=== PATIENT | female | born 1960 | race Caucasian/White ===

== ENCOUNTER 2020-09-17 10:39 | Outpatient (REF) | payer OTHER, SELFPAY ==
--- NOTE | ~2020-09-17 | MM_ITS ---
EXAMINATION: MM SCREENING DIGITAL BREAST TOMOSYNTHESIS, BILATERAL CLINICAL INFORMATION: Screening. Asymptomatic. The lifetime risk of breast cancer based on the Tyrer-Cuzick Model is 4.5%. COMPARISON: Mammography: July 06, 2018 and studies dating back to June 18, 2012 TECHNIQUE: Digital breast tomosynthesis is performed in both the craniocaudal and mediolateral oblique views along with computer-aided detection (CAD). Synthesized 2D images are generated from the tomosynthesis. FINDINGS: There are scattered areas of fibroglandular density (ACR BI-RADS breast composition Category b). There are no significant masses, abnormal calcifications, or other abnormalities. Intramammary lymph node seen left breast laterally. MM/MM tomosynthesis screening BI IMPRESSION: There are no significant changes from prior study. ASSESSMENT: BI-RADS 1: Negative RECOMMENDATION: Routine annual mammography screening. This patient's information was entered into a reminder system with a target due date for their next mammogram.
== END 2020-09-17 10:40 | disposition home or self-care (01) ==
LOC: HO.MAMMO 10:39
PROVIDERS: Visit Provider General Practice
DX: Z12.31 Encounter for screening mammogram for malignant neoplasm of breast (principal)
CPT/HCPCS: 77063; 77067

== ENCOUNTER 2021-10-11 12:20 | Outpatient (REF) | payer OTHER, SELFPAY ==
--- NOTE | ~2021-10-11 | MM_ITS ---
EXAMINATION: BONE DENSITOMETRY CLINICAL INDICATION: Menopause. COMPARISON: This is the patient's baseline examination. TECHNIQUE: Using a [employer] DXA System (software version: 13.1) manufactured by [employer] dual-energy x-ray absorptiometry was performed of the lumbar spine and right hip. The images are of good technical quality. Summary results are attached. FINDINGS: AP SPINE L1-L4: BMD 0.714 g/cm2, Z-score -2.4, T-score -3.9, osteoporosis. RIGHT FEMUR, NECK: BMD 0.615 g/cm2, Z-score -1.6, T-score -3.0, osteoporosis. RIGHT FEMUR, TOTAL: BMD 0.593 g/cm2, Z-score -2.2, T-score -3.3, osteoporosis. IDENTIFIED RISK FACTORS: Menopause, tobacco use (current smoker), history of fracture (adult). HISTORY OF FRACTURE: Hip. MEDICATIONS: Calcium, vitamin D. MM/XR DEXA axial skeleton IMPRESSION: 1. DIAGNOSIS: Severe osteoporosis based on the lowest T-score value of -3.9 in the lumbar spine and history of fracture of hip applying World Health Organization criteria. 2. 10-YEAR FRACTURE RISK PREDICTION, FRAX: Major osteoporotic fracture (clinical spine, forearm, hip or shoulder) 15.8%. Hip fracture 7.0%. 3. Treatment Recommendations: NOF guidelines recommend consideration for treatment in postmenopausal women and men age 50 and older presenting with the following: -A hip or vertebral (clinical or morphometric) fracture. -T-score less than or equal to -2.5 at the femoral neck or spine after appropriate evaluation to exclude secondary causes. -Low bone mass at the hip or spine and a 10-year fracture probability by FRAX of greater than or equal to 3% for hip fracture or greater than or equal to 20% for major osteoporotic fracture based on the [place] adapted WHO algorithm. 4. Other Recommendations: All treatment decisions require clinical judgment and consideration of individual patient factors, including patient preferences, comorbidities, previous drug use, risk factors not captured in the FRAX model (e.g. frailty, falls, vitamin D deficiency, increased bone turnover, interval significant decline in bone density) and possible under or overestimation of fracture risk by FRAX. Additional medical evaluation for secondary cause of low bone mineral density may be appropriate. FUTURE SCAN RECOMMENDATION: People with diagnosed cases of osteoporosis or at high risk for fracture should have regular bone mineral density tests. For patients eligible for Medicare, routine testing is allowed once every 2 years. The testing frequency can be increased to one year for patients who have rapidly progressing disease, those who are receiving or discontinuing medical therapy to restore bone mass, or have additional risk factors.
--- NOTE | ~2021-10-11 | MM_ITS ---
EXAMINATION: MM SCREENING DIGITAL BREAST TOMOSYNTHESIS, BILATERAL CLINICAL INFORMATION: Screening. Asymptomatic. The lifetime risk of breast cancer based on the Tyrer-Cuzick Model is 10%. COMPARISON: Mammography: 09/17/2020, 07/06/2018, 06/20/2017 TECHNIQUE: Digital breast tomosynthesis is performed in both the craniocaudal and mediolateral oblique views along with computer-aided detection (CAD). Synthesized 2D images are generated from the tomosynthesis. FINDINGS: There are scattered areas of fibroglandular density (ACR BI-RADS breast composition Category b). There are no significant masses, abnormal calcifications, or other abnormalities. Parenchymal pattern is similar to prior studies. There is no developing density or architectural abnormality. The axilla and skin contours are unremarkable. No significant changes. MM/MM tomosynthesis screening BI IMPRESSION: No mammographic evidence of malignancy. ASSESSMENT: BI-RADS 1: Negative RECOMMENDATION: Routine annual mammography screening. This patient's information was entered into a reminder system with a target due date for their next mammogram.
== END 2021-10-11 12:21 | disposition home or self-care (01) ==
LOC: HO.MAMMO 12:20
PROVIDERS: PCP Pediatrics; Visit Provider Pediatrics
DX: Z12.31 Encounter for screening mammogram for malignant neoplasm of breast (principal); Z13.820 Encounter for screening for osteoporosis; Z78.0 Asymptomatic menopausal state; F17.210 Nicotine dependence, cigarettes, uncomplicated; Z87.81 Personal history of (healed) traumatic fracture
CPT/HCPCS: 77063; 77067; 77080

== ENCOUNTER 2022-08-29 12:04 | Outpatient (REF) | payer OTHER, SELFPAY ==
--- NOTE | ~2022-08-29 | XR_ITS ---
EXAMINATION: XR ANKLE, RIGHT CLINICAL INFORMATION: Injury COMPARISON: None available. TECHNIQUE: AP, lateral, and mortise views of the right ankle. FINDINGS: Bone alignment is normal. No fracture or dislocation. The ankle mortise is normal. There are small calcaneal spurs. Soft tissues are normal. XR/XR ankle RT min 3V IMPRESSION: Small calcaneal spurs
== END 2022-08-29 12:05 | disposition home or self-care (01) ==
LOC: HO.HHCX 12:04
PROVIDERS: Visit Provider Family Medicine
DX: M25.571 Pain in right ankle and joints of right foot (principal)
CPT/HCPCS: 73610

== ENCOUNTER 2022-09-08 13:09 | Outpatient (REF) | payer OTHER, SELFPAY | END 2022-09-08 13:10 | disposition home or self-care (01) | LOC: HO.US 13:09 | PROVIDERS: Visit Provider Pediatrics | DX: Z13.89 Encounter for screening for other disorder (principal) ==

== ENCOUNTER 2022-09-19 10:57 | Outpatient (REF) | payer OTHER, SELFPAY ==
--- NOTE | ~2022-09-19 | US_ITS ---
EXAMINATION: US PELVIS CLINICAL INFORMATION: Pain pelvis, postmenopausal. COMPARISON: None available. TECHNIQUE: Ultrasound of the pelvis is performed using both transabdominal and transvaginal transducers along with Doppler. Transvaginal imaging is performed due to inadequate visualization transabdominally. FINDINGS: The uterus is anteverted, heterogeneous and measures 7.1 x 3.1 x 4.4 cm. 2.4 x 0.8 x 2.0 cm solid, hypoechoic mass without demonstrable vascularity within the endometrium possibly represents polyp versus clot. Fluid within the endometrial cavity. Endometrial thickness is 0.13 cm. No significant free fluid in the pelvis. Bilateral ovaries were not visualized. Visualization limited due to bowel gas. US/US pelvic and transvaginal IMPRESSION: 2.4 cm solid mass within the endometrium surrounded by small amount of fluid, possibly representing polyp versus clot etiology. Recommend gynecologic consultation and possible biopsy. Follow up ultrasound could be considered in 4-6 weeks. This study was presented today 09/30/2022 at 8:00 AM for interpretation. PSA staff will provide results to referring provider at this time.
== END 2022-09-19 10:58 | disposition home or self-care (01) ==
LOC: HO.US 10:57
PROVIDERS: PCP Pediatrics; Visit Provider Pediatrics
DX: N94.10 Unspecified dyspareunia (principal); N93.8 Other specified abnormal uterine and vaginal bleeding
CPT/HCPCS: 76830; 76856

== ENCOUNTER 2023-03-20 14:22 | Outpatient (REF) | payer OTHER, SELFPAY ==
[2023-03-24 12:27] LABS: Fentanyl, Ur NEGATIVE; Norfentanyl, Ur NEGATIVE
== END 2023-03-20 14:23 | disposition home or self-care (01) ==
LOC: HO.HHCLNP 14:22
PROVIDERS: Visit Provider Pediatrics
DX: M54.9 Dorsalgia, unspecified (principal); G89.29 Other chronic pain
CPT/HCPCS: 80354

== ENCOUNTER 2023-07-14 13:23 | Outpatient (REF) | payer OTHER, SELFPAY ==
--- NOTE | ~2023-07-14 | XR_ITS ---
EXAMINATION: XR FOOT, RIGHT CLINICAL INFORMATION: Chronic plantar right foot pain, patient states pain, no trauma. COMPARISON: Right ankle August 29, 2022. TECHNIQUE: AP, lateral, and oblique views of the right foot. FINDINGS: The bones are diffusely demineralized. Radiopaque marker placed by the technologist to indicate the area of concern indicated by the patient lateral to the base of the fifth metatarsal. Mild degenerative changes in the first metatarsophalangeal joint and in the IP joint of the great toe. No displaced fracture appreciated. Small plantar calcaneal spur. XR/XR foot RT min 3V IMPRESSION: 1. Mild degenerative changes in the first metatarsophalangeal joint and in the IP joint of the great toe. 2. Bones are diffusely demineralized. No displaced fracture appreciated. Recommend follow up imaging in 10-14 days if fracture is suspected.
== END 2023-07-14 13:24 | disposition home or self-care (01) ==
LOC: HO.XRAY 13:23
PROVIDERS: PCP Pediatrics; Visit Provider Pediatrics
DX: M79.671 Pain in right foot (principal); G89.29 Other chronic pain
CPT/HCPCS: 73630

== ENCOUNTER 2023-10-02 11:23 | Outpatient (REF) | payer OTHER, SELFPAY ==
--- NOTE | ~2023-10-02 | XR_ITS ---
EXAMINATION: XR FOOT, RIGHT CLINICAL INFORMATION: DJD foot and pain, needs repeat x-ray to rule out fracture, patient states pain on lateral aspect of foot. COMPARISON: 07/14/2023. TECHNIQUE: AP, lateral, and oblique views of the right foot. FINDINGS: Diffuse demineralization. Mild degenerative changes in the first metatarsophalangeal joint and in the IP joint of the great toe. Small plantar calcaneal spur. No displaced fracture identified in the previously indicated area of concern along the base of the fifth metatarsal. XR/XR foot RT min 3V IMPRESSION: 1. No displaced fracture identified in the previously indicated area of concern along the base of the fifth metatarsal. 2. Recommend follow up imaging in 10-14 days if fracture is suspected.
== END 2023-10-02 11:24 | disposition home or self-care (01) ==
LOC: HO.XRAY 11:23
PROVIDERS: PCP Pediatrics; Visit Provider Pediatrics
DX: M79.671 Pain in right foot (principal); G89.29 Other chronic pain
CPT/HCPCS: 73630

== ENCOUNTER 2023-10-14 09:23 | Outpatient (REF) | payer OTHER, SELFPAY ==
--- NOTE | ~2023-10-14 | MM_ITS ---
EXAMINATION: BONE DENSITOMETRY CLINICAL INDICATION: Age-related osteoporosis without current pathological fracture. COMPARISON: Baseline BD dated 10/11/2021. TECHNIQUE: Using a [employer] DXA System (software version: 13.1) manufactured by [employer] dual-energy x-ray absorptiometry was performed of the lumbar spine and right hip. The images are of good technical quality. Summary results are attached. FINDINGS: RIGHT FEMUR, NECK: Current: BMD 0.611 g/cm2, Z-score -1.6, T-score -3.1, osteoporosis. Baseline: BMD 0.615 g/cm2. RIGHT FEMUR, TOTAL: Current: BMD 0.593 g/cm2, Z-score -2.1, T-score -3.3, osteoporosis, 0.0% change from baseline (<5% change is not significant). Baseline: BMD 0.593 g/cm2. AP SPINE L1-L4: Current: BMD 0.731 g/cm2, Z-score -2.2, T-score -3.7, osteoporosis, 2.4% increase from baseline (<5% change is not significant). Baseline: BMD 0.714 g/cm2. IDENTIFIED RISK FACTORS: Menopause, hysterectomy, history of fracture (adult), anticonvulsant, bilateral oophorectomy, osteoporosis, recurrent falls, tobacco use (current smoker). HISTORY OF FRACTURE: Hip. MEDICATIONS: Vitamin D. MM/XR DEXA axial skeleton IMPRESSION: 1. DIAGNOSIS: Severe osteoporosis based on the lowest T-score value of -3.7 in the lumbar spine and history of fracture of hip applying World Health Organization criteria. 2. 10-YEAR FRACTURE RISK PREDICTION, FRAX: According to the guidelines, FRAX calculation should only be performed on patients in the osteopenia bone density category. Therefore, FRAX was not performed on this patient. 3. Treatment Recommendations: NOF guidelines recommend consideration for treatment in postmenopausal women and men age 50 and older presenting with the following: -A hip or vertebral (clinical or morphometric) fracture. -T-score less than or equal to -2.5 at the femoral neck or spine after appropriate evaluation to exclude secondary causes. -Low bone mass at the hip or spine and a 10-year fracture probability by FRAX of greater than or equal to 3% for hip fracture or greater than or equal to 20% for major osteoporotic fracture based on the [place] adapted WHO algorithm. 4. Other Recommendations: All treatment decisions require clinical judgment and consideration of individual patient factors, including patient preferences, comorbidities, previous drug use, risk factors not captured in the FRAX model (e.g. frailty, falls, vitamin D deficiency, increased bone turnover, interval significant decline in bone density) and possible under or overestimation of fracture risk by FRAX. Additional medical evaluation for secondary cause of low bone mineral density may be appropriate. FUTURE SCAN RECOMMENDATION: People with diagnosed cases of osteoporosis or at high risk for fracture should have regular bone mineral density tests. For patients eligible for Medicare, routine testing is allowed once every 2 years. The testing frequency can be increased to one year for patients who have rapidly progressing disease, those who are receiving or discontinuing medical therapy to restore bone mass, or have additional risk factors.
== END 2023-10-14 09:24 | disposition home or self-care (01) ==
LOC: HO.MAMMO 09:23
PROVIDERS: PCP Pediatrics; Visit Provider Pediatrics
DX: M81.0 Age-related osteoporosis without current pathological fracture (principal); Z78.0 Asymptomatic menopausal state
CPT/HCPCS: 77080

== ENCOUNTER 2023-12-18 11:51 | Outpatient (REF) | payer OTHER, SELFPAY ==
[2023-12-18 14:13] LABS: MANUAL DIFF FLAG NO
[2023-12-18 14:18] LABS: Basophils Percent Auto 0.7 % (0-2); Eosinophils Absolute Auto 0.1 X10*3/uL (0.0-0.4); Eosinophils Percent Auto 1.4 % (0-4); Hematocrit 35.3 % (37.0-47.0); Hemoglobin 11.3 g/dl (12.0-16.0); Imm Gran Abs Auto 0.01 X10*3/uL (0.00-0.03); Imm Gran Pct Auto 0.2 % (0.0-0.4); Lymphocytes Absolute Auto 1.5 X10*3/uL (1.2-4.9); Lymphocytes Percent Auto 36.7 % (20-40); Mean Corpuscular Hemoglobin 27.2 pg (27.0-33.0); Mean Corpuscular Volume 84.9 fL (80.0-98.0); Mean Platelet Volume 9.7 fL (9.4-12.3); Monocytes Absolute Auto 0.3 X10*3/uL (0.1-1.2); Monocytes Percent Auto 7.6 % (2-11); Neutrophils Absolute Auto 2.2 x10*3/uL (2.0-8.3); Neutrophils Percent Auto 53.4 % (45-73); Platelet Count 300 X10*3/uL (160-400); Red Blood Count 4.16 X10*6/uL (4.20-5.50); Red Cell Distribution Width 13.4 % (11.0-16.0); White Blood Count 4.2 X10*3/uL (4.8-10.8)
[2023-12-18 14:48] LABS: Alanine Aminotransferase 13 U/L (0-31); Albumin Level 3.8 g/dL (3.5-5.0); Alkaline Phosphatase 64 U/L (39-117); Anion Gap 10 (12-20); Aspartate Amino Transferase 16 U/L (5-31); Bilirubin Total 0.6 mg/dL (0.0-1.0); Blood Urea Nitrogen 19 mg/dL (9-16); Calcium 9.2 mg/dL (8.4-10.2); Carbon Dioxide 29 mmol/L (22-29); Chloride 108 mmol/L (96-108); Estimated Glomerular Filt Rate > 60; Glucose Random 86 mg/dL (60-115); Potassium 3.6 mmol/L (3.3-5.1); Sodium 143 mmol/L (135-145); Total Protein 6.5 g/dL (6.5-8.0)
== END 2023-12-18 11:52 | disposition home or self-care (01) ==
LOC: HO.CHCLDS 11:51
PROVIDERS: Visit Provider Internal Medicine
DX: Z01.818 Encounter for other preprocedural examination (principal)
CPT/HCPCS: 36415; 80053; 85025

== ENCOUNTER 2024-03-02 10:36 | Outpatient (REF) | payer OTHER, SELFPAY ==
[2024-03-02 14:11] LABS: MANUAL DIFF FLAG NO
[2024-03-02 14:16] LABS: Basophils Percent Auto 0.6 % (0-2); Eosinophils Absolute Auto 0.1 X10*3/uL (0.0-0.4); Eosinophils Percent Auto 1.9 % (0-4); Hematocrit 36.4 % (37.0-47.0); Hemoglobin 11.6 g/dl (12.0-16.0); Imm Gran Abs Auto 0.01 X10*3/uL (0.00-0.03); Imm Gran Pct Auto 0.2 % (0.0-0.4); Lymphocytes Absolute Auto 1.3 X10*3/uL (1.2-4.9); Mean Corpuscular HGB Conc 31.9 g/dl (31.0-35.0); Mean Corpuscular Hemoglobin 26.7 pg (27.0-33.0); Mean Corpuscular Volume 83.7 fL (80.0-98.0); Mean Platelet Volume 9.7 fL (9.4-12.3); Monocytes Absolute Auto 0.3 X10*3/uL (0.1-1.2); Monocytes Percent Auto 5.8 % (2-11); Neutrophils Absolute Auto 2.9 x10*3/uL (2.0-8.3); Neutrophils Percent Auto 62.5 % (45-73); Platelet Count 327 X10*3/uL (160-400); Red Blood Count 4.35 X10*6/uL (4.20-5.50); Red Cell Distribution Width 12.9 % (11.0-16.0); White Blood Count 4.6 X10*3/uL (4.8-10.8)
[2024-03-02 14:32] LABS: Iron 113 mcg/dL (30-160); Percent Iron Saturation 45 % (15-50); Total Iron Binding Capacity 251 mcg/dL (228-428); Unsaturated Iron Binding 138 ug/dL
[2024-03-02 14:47] LABS: Vitamin D 25-OH Total 39.1 ng/mL (>30)
[2024-03-02 15:00] LABS: Folate 10.4 ng/mL (> or = 4.0); Vitamin B12 1297 pg/mL (200-900)
== END 2024-03-02 10:37 | disposition home or self-care (01) ==
LOC: HO.CHCLDS 10:36
PROVIDERS: Visit Provider Pediatrics
DX: M81.0 Age-related osteoporosis without current pathological fracture (principal); D50.8 Other iron deficiency anemias
CPT/HCPCS: 36415; 82306; 82607; 82746; 83540; 85025

== ENCOUNTER 2024-03-09 17:40 | Outpatient (REF) | payer OTHER, SELFPAY ==
[2024-03-14 11:49] LABS: Fentanyl, Ur NEGATIVE; Norfentanyl, Ur NEGATIVE
== END 2024-03-09 17:41 | disposition home or self-care (01) ==
LOC: HO.CHCLNP 17:40
PROVIDERS: Visit Provider Pediatrics
DX: M54.9 Dorsalgia, unspecified (principal); G89.29 Other chronic pain
CPT/HCPCS: 80354

== ENCOUNTER 2024-06-21 10:40 | Outpatient (REF) | payer OTHER, SELFPAY ==
--- OUTSIDE RECORDS SUMMARY | 2024-06-21 12:44 | XMS_ITS | Encounter Summary ---
Author Organization [employer] Address [address] [facility] [address] [place] [address] Care Team Providers Care Measuring Machine Tender Name Role Phone Tran Rogers MD Primary Care Provider [phone] Encounter Details Date Type Department Care Team (Late Contact Info) Description 06/17/2024 Orders Only [facility] [address] [place], [place] [id number] Provider, MD Sebastian Social History Tobacco Use Types Packs/Day Years Used Date Smoking Tobacco: Some Days Cigarettes Passive Smoke Exposure: Current Smokeless Tobacco: Never Alcohol Use Standard Drinks/Week Comments Not Currently 0 (1 standard drink = 0.6 oz pur e alcohol) Alcohol Answer Date Recorded Q1: How often do you have a drink containing alc ohol? 3 04/11/2022 Average Number of Drinks Not on file 023 Frequency of Binge Drinking Not on file 03/24 Depression Answer Date Recorded Patient Health Questionnaire-9 Score 11 07/14/2023 Patient Health Questionnaire-9 Score 11 07/14/2023 Last PHQ-9: Questionnaire Data Not on file 0 07/14/2023 Depression Answer Date Recorded Patient Health Questionnaire-2 Score 2 07/14/2023 Comments Unknown Sex and Gender Information Value Date Recorded Sex Assigned at Female 01/20/2022 10:30 AM EDT Legal Sex Female 10:30 AM EDT Gender Identity Female 01/20/2022 10:30 AM EDT Sexual Orientation Straight 01/20/2022 10 :30 AM EDT documented as of this encounter Plan of Treatment Upcoming Encounters Date Type Department Care Team (Late Contact Info) Description 08/10/2024 11:00 AM EDT Clinical Support [facility] [address] [place] [address] Vesta Marcial, RN [address] [place] [address] 08/23/2024 11:30 AM EDT Office Visit [facility] [address] [place] [address] Tran Rogers MD [address] [place] [address] documented as of this encounter Procedures Procedure Name Priority Date/Time Associated Diagnosis Comments ECG 12-LEAD Routine 06/16/2024 8:57 AM EDT documented in this encounter Results * ECG 12 lead (06/16/2024 8:57 AM EDT) us Historical Provider ECG ORDERABLES Final Res ult documented in this encounter Visit Diagnoses Not on filedocumented in this encounter Additional Health Concerns Assessment Noted Time PHQ-9 Depression Total Score: 11 024 10:16 AM EDT documented as of this encounter Care Teams Measuring Machine Tender Relationship Specialty Start Date End Date Tran Rogers MD [address] [place] [address] PCP - General Family Medicine 11/10/17 documented as of this encounter
--- OUTSIDE RECORDS SUMMARY | 2024-06-21 12:44 | XMS_ITS | Encounter Summary ---
Author Organization [employer] Address [address] [place] [address] [address] [place] [address] Care Team Providers Care Rubber Trimmer Name Role Phone Tran Rogers MD Primary Care Provider [phone] Encounter Details Date Type Department Care Team (Late Contact Info) Description 03/20/2023 Orders Only [facility] [address] [place] [address] Ozzy Foster MD [address] [place] [address] Social History Tobacco Use Types Packs/Day Years Used Date Smoking Tobacco: Former Cigarettes Passive Smoke Exposure: Current Smokeless Tobacco: Never Alcohol Use Standard Drinks/Week Comments Not Currently 0 (1 standard drink = 0.6 oz pur e alcohol) Alcohol Answer Date Recorded Q1: How often do you have a drink containing alc ohol? 3 04/11/2022 Average Number of Drinks Not on file 023 Frequency of Binge Drinking Not on file 03/24 Comments Unknown Sex and Gender Information Value Date Recorded Sex Assigned at Female 01/20/2022 10:30 AM EDT Legal Sex Female 10:30 AM EDT Gender Identity Female 01/20/2022 10:30 AM EDT Sexual Orientation Straight 01/20/2022 10 :30 AM EDT documented as of this encounter Plan of Treatment Upcoming Encounters Date Type Department Care Team ([facility] Contact Info) Description 08/10/2024 11:00 AM EDT Clinical Support [facility] [address] [place] [address] Vesta Marcial RN [address] [place] [address] 08/23/2024 11:30 AM EDT Office Visit [facility] [address] [place], [place] [phone] Tran Rogers MD [address] [place] [address] documented as of this encounter Procedures Procedure Name Priority Date/Time Associated Diagnosis Comments DRUG MONITOR, FENTANYL, W/CONF, URINE Routine 03/20/2023 2:22 PM EST documented in this encounter Results * Drug Monitoring, Fentanyl, with Confirmation, Urine (03/20/2023 2:22 PM EST) Fentanyl, Ur NEGATIVE [facility] Comment:REFERENCE RANGE: <0. 5 ng/mL Norfentanyl, Ur NEGATIVE [facility] Comment:REFERENCE RANGE: <0. 5 ng/mL Fentanyl Note SEE NOTE [facility] Comment:This drug testing is for medical treatment only.Analysis was performed as non-forensic testing andthese results should be used only by healthcareproviders to render diagnosis or treatment, or tomonitor progress of medical conditions.LDT Notes:Confirmation tests were developed and their analyticalperformance characteristics have been determined by[facility]. It has not been cleared or approvedby the FDA. This assay has been validated pursuant tothe CLIA regulations and is used for clinical purposes.Healthcare Providers needing Interpretation assistance,please contact us at [phone] ( )M-F, 8am to 10pm ESTTHIS TEST PERFORMED AT:[facility] [address] [phone] DIRECTOR: CLARE BILLY MD 03/20/2023 2:22 PM EST 03/20/2023 2:37 PM EST us Tran Rogers MD LAB URINE ORDERABLES Final Re sult [facility] [address] [place] [phone] documented in this encounter Visit Diagnoses Not on filedocumented in this encounter Care Teams Rubber Trimmer Relationship Specialty Start Date End Date Tran Rogers MD [address] [place] [id number] PCP - General Family Medicine 11/10/17 documented as of this encounter
--- OUTSIDE RECORDS SUMMARY | 2024-06-21 12:44 | XMS_ITS | Encounter Summary ---
Author Organization [employer] Address [address] [place] [address] 7 [place] [address] Care Team Providers Care Utilities Estimator And Drafter Name Role Phone Tran Rogers MD Primary Care Provider [phone] Reason for Visit * Reason Onset Date Comments Nurse Triage 06/17/2024 Encounter Details Date Type Department Care Team (Late st Contact Info) Description 06/17/2024 Telephone [facility] MEDICINE [address] [place] [address] Tran Rogers MD [address] [place] [address] Nurse Triage Social History Tobacco Use Types Packs/Day Years [...] AM EDT documented as of this encounter Miscellaneous Notes * Telephone Encounter - Luba Chakraborty LPN - 06/17/2024 2:51 PM EDT Triage call returned with BLS # [id number] Fidel. Patient answers phone readily speech is clear and content appropriate. Patient confirms [facility] ED visit yesterday with confusion weakness and anxiety as related to forgetfulness. Patient denies SI/HI at time of call. Reports that this morning after bathing she left water running and was notified by neighbor. Patient has been having issues in apt. She live in but has been approved for alternate housing. No other identified stressors at time of call Patient reports she does not eat well as she is never really hungry. Also is takes Doxepin for sleep as she does not sleep well. Med ordered as 75mgdaily but patient was told by Psych she could take 2 as needled and sometimes takes three per report. Patient is followed by Psych Provider and does not have an appt for some months. Patient has [employer] services that she feels are helpful to her and that spending time alone at home makes her feel worse. Patient was able to get outside today with a friend and states it really helped her. Patient Meds are not prepackaged and reports that they are in bottles and that she is able to maintain correct schedule. Disposition reviewed and appt for 06/21/24 10am 30 minute slot obtained with Armorer Technician [facility] approval. Patient will see PCP at that time Dr. Rogers. Patient reminded of [facility] asneeded and she verbalized understanding. Patient agreed to text message with Date and time of appt as a reminder for 06/21/24 Text sent at end of call. Protocol Used: Confusion - Delirium (Adult) Protocol-Based Disposition: See in Office or Video Visit Today or Tomorrow Positive Triage Question: * Longstanding confusion (e.g., dementia, stroke) and getting worse * All higher-acuity triage questions were negative * Telephone Encounter - Sarahirpimitivo Neely - 06/17/2024 1:41 PM EDT Tc from pt requesting a call in regards symptoms psychotic episodes Hallucinations Disorganized thinking and speech documented in this encounter Plan of Treatment Upcoming Encounters Date Type Department Care Team ([facility] st Contact Info) Description 08/10/2024 11:00 AM EDT Clinical Support [facility] MED & PEDS [address] [place] [address] Vesta Marcial, RN [address] [place] [address] 08/23/2024 11:30 AM EDT Office Visit [facility] MED & PEDS [address] [place] [address] Tran Rogers MD [address] [place] [address] documented as of this encounter Visit Diagnoses Not on filedocumented in this encounter Additional Health Concerns Assessment Noted Time PHQ-9 Depression Total Score: 11 024 10:16 AM EDT documented as of this encounter Care Teams Utilities Estimator And Drafter Relationship Specialty Start Date End Date Tran Rogers MD [address] [place] [address] PCP - General Family Medicine 11/10/17 documented as of this encounter
--- OUTSIDE RECORDS SUMMARY | 2024-06-21 12:44 | XMS_ITS | Encounter Summary ---
Author Organization [employer] Address [address] [place] [address] [address] [address] Care Team Providers Care Website Programmer Name Role Phone Tran Rogers MD Primary Care Provider [phone] Reason for Visit * Reason Onset Date Comments Appointment Request 01/13/2024 Encounter Details Date Type Department Care Team ([facility] st Contact Info) Description 01/13/2024 Telephone [facility] MEDICINE [address] [place] [address] Tran Rogers MD [address] [place] [address] Appointment Request Social History Tobacco Use Types Packs/Day Years [...] encounter Miscellaneous Notes * Telephone Encounter - Michael Weaver - 01/13/2024 9:55 AM EDT Tc from pt requesting call back to reschedule [employer] visit. Please contact pt at [phone]. (Russian Speaker) documented in this encounter Plan of Treatment Upcoming Encounters Date Type Department Care Team ([facility] st Contact Info) Description 08/10/2024 11:00 AM EDT Clinical Support [facility] MED & PEDS [address] [place] [address] Vesta Marcial RN [address] [place] [address] 08/23/2024 11:30 AM EDT Office Visit [facility] MED & PEDS [address] [place] [address] Tran Rogers MD [address] [place] [address] documented as of this encounter Visit Diagnoses Not on filedocumented in this encounter Additional Health Concerns Assessment Noted Time PHQ-9 Depression Total Score: 11 024 10:16 AM EDT documented as of this encounter Care Teams Website Programmer Relationship Specialty Start Date End Date Tran Rogers MD [address] [place] [address] PCP - General Family Medicine 11/10/17 documented as of this encounter
--- OUTSIDE RECORDS SUMMARY | 2024-06-21 12:44 | XMS_ITS | Clinical Summary ---
Author Organization [employer] Address [address] [facility] [address] [place] [address] Care Team Providers Care Learning Support Specialist Name Role Phone Tran Rogers MD Primary Care Provider Allergies Active Allergy Reactions Criticality Noted Date Comments Penicillin G Low 04/09/2016 Other reaction(s): Hives / Skin Rash Medications * This document contains information received from the source organization and may not represent a complete record from that organization. B Complex Vitamins (RA B-Complex with B-12) tablet Take 1 tablet by mouth in the morning. 022 Active clonazePAM (KlonoPIN) 0.5 MG tablet Take 1 tablet by mouth every 12 (twelve) hours. Active loratadine (Claritin) 10 MG tablet Take 1 tablet by mouth 1 (one) time each day. 021 Active methocarbamol (Robaxin) 750 MG tablet Take 1 tablet by mouth every 8 (eight) hours. 022 Active naloxone (Narcan) 4 mg/0.1 mL nasal spray Administer 0.1 mL into affected nostril(s). 020 Active Nutritional Supplements (Ensure High Protein) liquid drink 1 can orally 3 times a day 020 Active cholecalciferol (Vitamin D-3) 50 MCG (1999) tabletIndications :Primary osteoarthritis of knees, bilateral Take 1 tab po daily 90 tablet 3 023 Active pantoprazole (ProtoNix) 20 MG EC tablet TAKE 1 TABLET BY MOUTH TWICE DAILY 60 tablet 3 023 Active doxepin (SINEquan) 75 MG capsule Take 75 mg by mouth. 024 Active ARIPiprazole (Abilify) 20 MG tablet Take 20 mg by mouth in the morning. 024 Active tiZANidine (Zanaflex) 4 MG tablet TAKE 1 TABLET BY MOUTH EVERY NIGHT AT BEDTIME NEEDED 90 tablet 1 024 Active cyanocobalamin (Vitamin B-12) 1000 MCG tablet TAKE 1 TABLET BY MOUTH EVERY DAY 90 tablet 1 024 Active lidocaine (Lidoderm) 5 % patchIndications: Acute left-sided low back pain with left-sided sciatica Apply 1 patch topically Once per day. Remove & discard patch within 12 hours or as directed by MD. 30 patch Active ferrous sulfate 325 (65 Fe) MG EC tablet TAKE 1 TABLET BY MOUTH TWICE DAILY 60 tablet 3 024 Active alendronate (Fosamax) 70 MG tablet Take 1 tablet (70 mg) by mouth every 7 (seven) days. 12 tablet 2 024 Active pantoprazole (ProtoNix) 20 MG EC tablet TAKE 1 TABLET BY MOUTH TWICE DAILY 60 tablet 3 025 Active traMADol (Ultram) 50 MG tabletIndications :Chronic back pain, unspecified back location, unspecified back pain laterality Take 1 tablet (50 mg) by mouth every 8 (eight) hours if needed for severe pain. 84 tablet 025 Active Multiple Vitamin (Multivitamin) tablet TAKE 1 TABLET BY MOUTH EVERY MORNING 90 tablet 1 025 Active DayVigo 10 MG tablet Take 1 tablet by mouth at bedtime. 023 Active lithium 300 MG capsule TAKE ONE CAPSULE BY MOUTH EVERY MORNING AND 2 CAPSULES EVERY NIGHT AT BEDTIME Active LORazepam (Ativan) 0.5 MG tablet TAKE 1 TABLET AT BEDTIME AND 1 TABLET 1 HOUR PRIOR TO PROCEDURE 023 Active Multiple Vitamin (Multivitamin) tablet TAKE 1 TABLET BY MOUTH EVERY MORNING 90 tablet 1 024 2024 Discontinued(R annamarie (will not trigger notification to Pharmacy)) traMADol (Ultram) 50 MG tabletIndications :Chronic back pain, unspecified back location, unspecified back pain laterality TAKE 1 TABLET(50 MG) BY MOUTH EVERY 8 HOURS NEEDED FOR SEVERE PAIN 84 tablet 025 2024 Discontinued(R eorder (will not trigger notification to Pharmacy)) Active Problems Problem Noted Date Diagnosed Date Long-term current use of opiate analgesic 2024 Lesion of brain 06/09/2022 Overview (06/09/2022): MRI from : 1. Mild, nonspecific subcortical white matter abnormality without enhancement. These lesions could represent areas of ischemia, gliosis, demyelination or edema related to vasculitis, Lyme disease, sarcoidosis, migraine, multiple sclerosis and infectious and postinfectious encephalitis. . 2. Enhancing vessel anterior to the right cerebral peduncle and right upper zarina likely representing an apparent venous drainage pathway. Dementia, presenile 06/09/2022 Rib pain on left side 06/09/2022 Depression with anxiety 04/15/2022 Age-related osteoporosis wit hout current pathological fracture 04/15/2022 Lumbago with sciatica 09/30/2018 Gastroesophageal reflux disease without esophagi tis 02/19/2018 Benzodiazepine dependence, continuous 12/21/2017 Back pain, chronic 12/21/2017 Mood disorder 12/21/2017 Primary osteoarthritis of knees, bilateral 12/21 Seasonal allergies 12/21/2017 Tubular adenoma of colon 08/11/2013 Overview (04/15/2022): tubular adenoma of colonrepeat colonoscopy in 5 years Encounters Date Type Department Care Team Description 06/21/2024 10:00 AM EDT Office Visit [facility] MED & PEDS [address] [place] [address] Tran Rogers MD Confusion and disorientation (Primary Dx) 06/21/2024 Travel 06/20/2024 Telephone [facility] MED [facility] PEDS [address] [place] [address] Tran Rogers MD Chart Prep 06/17/2024 Telephone [facility] MEDICINE [address] [place] [address] Tran Rogers MD Nurse Triage 06/17/2024 Orders Only [facility] MED [facility] PEDS [address] [place] [address] ProviderSebastian MD 06/14/2024 Refill [facility] MED [facility] PEDS [address] [place] [address] Tran Rogers MD 06/02/2024 1:30 PM EDT Clinical Support [facility] MED & PEDS [address] [place] [address] Vesta Marcial RN Chronic back pain, unspecified back location, unspecified back pain laterality (Primary Dx); Long-term current use of opiate analgesic 06/02/2024 Refill [facility] MED & PEDS [address] [place] [address] Vesta Marcial RN Chronic back pain, unspecified back location, unspecified back pain laterality 06/02/2024 Telephone [facility] MED & PEDS [address] [place] [address] Tran Rogers MD traige 06/02/2024 Travel 05/17/2024 Refill [facility] MEDICINE [address] [place] [address] Tran Rogers MD 04/15/2024 Refill [facility] MED & PEDS [address] [place] [address] Tran Rogers MD Chronic back pain, unspecified back location, unspecified back pain laterality from Last 3 Months Immunizations Name Administration Dates Next Due Hep B, adult 11/25/2018,10/14/2018 Influenza Injectable Quadriv alant Preservative Free IIV4 MDCK 02/12/2022 Influenza injectable quadriv alent IIV4 with preservative 04/08/2019 Moderna Covid-19 Vaccine 12+ 05/03/2021,06/29/19 21 Tdap 12/21/2017,08/27/2012 Zoster, Recombinant 04/22/2022,02/12/2022 Social History Tobacco Use Types Packs/Day Years Used Date Smoking Tobacco: Some Days Cigarettes Passive Smoke Exposure: Current Smokeless Tobacco: Never Tobacco Cessation:Ready to Q uit: Not Asked; Counseling Given: Not Answered Alcohol Use Standard Drinks/Week Comments Not Currently [...] Orientation Straight 01/20/2022 10 :30 AM EDT Last Filed Vital Signs Vital Sign Reading Time Taken Comments Blood Pressure 147/85 06/21/2024 9:57 AM EDT Pulse 72 06/21/2024 9:57 AM EDT Temperature 36.2 ??C (97.2 ??F) 06/21/2024 9:57 AM ED T Respiratory Rate 16 06/21/2024 9:57 AM EDT Oxygen Saturation 98% 06/21/2024 9:57 AM EDT Inhaled Oxygen Concentration - - Weight 59.9 kg (132 lb) 06/21/2024 9:57 AM EDT Height 162.6 cm (5' 4 ) 06/21/2024 9:57 AM EDT Body Mass Index 22.66 06/21/2024 9:57 AM EDT Plan of Treatment Upcoming Encounters Date Type Department Care Team ([facility] st Contact Info) Description 08/10/2024 11:00 AM EDT Clinical Support [facility] MED & PEDS [address] [place] [address] Vesta Marcial, MANNIE [address] [place] [address] 08/23/2024 11:30 AM EDT Office Visit [facility] MED & PEDS [address] [place] [address] Tran Rogers MD [address] [place] [address] Health Maintenance Due Date Last Done Comments CT Colonography 1960 FIT DNA/Cologuard 1960 FIT 1960 FOBT 1960 SDOH Screening 1960 Sigmoidoscopy 1960 Alcohol/Substance Use Screening 1972 Pneumococcal Vaccine: 50+ Years (1 of 2 - PCV) 12/05/1979 Hepatitis B Vaccines (3 of 3 - 19+ 3-dose series) 04/16/2019 11/25/2018, 10/14/2018 COVID-19 Vaccine ( - season) 2023 05/03/2021, 06/28/2020, 06/01/2020 Influenza Vaccine (#1) 2023 02/12/2022, 2019 Depression Monitoring (PHQ-9) 01/13/2024 07/14/2023, 07/14/2023 Depression Screening 07/13/2024 07/14/2023, 07/14/19 24 Pap Smear 04/16/2025 04/16/2022 Tobacco Screening 06/21/2025 06/21/2024 Mammogram 07/12/2025 07/13/2023, 09/21, 10/11/2021, Additional history exists Lipid Panel 07/27/2025 07/27/2020 Cervical Cancer Screening 04/16/2027 HPV/Cotest 04/16/2027 04/16/2022, 03/24, 01/20/2017 DTaP/Tdap/Td Vaccines (3 - Td or Tdap) 12/22/2027 12/21/2017, 08/27/2012 Colonoscopy 12/13/2029 12/14/2019 Colorectal Cancer Screening 12/13/2029 RSV Patients and Patients Aged 60 years or older (1 - 1-dose 75+ series) 12/05/2035 HIV Screening Completed 07/27/2020 Hepatitis C Screening Completed 07/27/2020 Zoster Vaccines Completed 04/22/2022, 02/12/2022 HIB Vaccines Aged Out No longer eligi ble based on patient's age to complete this topic HPV Vaccines Aged Out No longer eligi ble based on patient's age to complete this topic Hepatitis A Vaccines Aged Out No long er eligible based on patient's age to complete this topic IPV Vaccines Aged Out No longer eligi ble based on patient's age to complete this topic Meningococcal Vaccine Aged Out No corinne nathanael eligible based on patient's age to complete this topic RSV under 20 months Aged Out No longe r eligible based on patient's age to complete this topic Rotavirus Vaccines Aged Out No longer eligible based on patient's age to complete this topic Procedures Procedure Name Priority Date/Time Associated Diagnosis Comments ECG 12-LEAD Routine 06/16/2024 8:57 AM EDT POCT JORGE-14 URINE DRUG SCREEN Routine 06/02/2024 1:15 PM EDT Long-term current use of opiate analgesic Chronic back pain, unspecified back location, unspecified back pain laterality BI MAMMOGRAM SCREENING TOMOSYNTHESIS BILATERAL Routine 07/13/2023 Breast cancer screening by mammogram HPV GENOTYPES 16 AND 18, CERVICAL Routine 04/16/2022 12:00 AM EST THINPREP IMAGING PAP AND HPV DNA REFLEX HPV 16,18 Routine 04/16/2022 12:00 AM EST ZZZ HISTORICAL HEPATITIS C AB W/REFL TO HCV RNA, QN, PCR Routine 07/27/2020 9:20 AM EDT HIV 1/2 ANTIGEN/ANTIBODY, FOURTH GENERATION W/RFL Routine 07/27/2020 9:20 AM EDT LIPID PANEL, STANDARD Routine 07/27/2020 9:20 AM EDT HM COLONOSCOPY Routine 12/14/2019 from Last 3 Months or Most Recently Relevant to Health Maintenance Results * ECG 12 lead (06/16/2024 8:57 AM EDT) us Historical Provider ECG ORDERABLES Final Res ult * POCT JORGE-14 Urine Drug Screen (06/02/2024 1:15 PM EDT) Urine Urine specimen obtained by clean catch procedure / Unknown 06/02/2024 1:15 PM EDT Narrative Rosalba Marciallena, MANNIE - 06/02/2024 1:15 PM EDT negative AMP, BAR, BUP, BZO, ALCON, FTY, MDMA, MET, MOP, MTD, OXY, PCP, TCA, THC. Lot# [id number] Exp: 11-09-25 Tran Rogers MD POINT OF CARE TEST ENTER/EDIT ORDERABLES Final Result * BI Mammogram Screening Tomosynthesis Bilateral (07/13/2023) Anatomical Region Laterality Modality Breast Bilateral Mammography Tran Rogers MD IMG BI PROCEDURES Final Resul t * (ABNORMAL) ThinPrep Imaging Pap and HPV DNA reflex HPV 16,18 (04/16/2022 12:00 AM EST) Clinical Information: None given [facility] LMP: NONE GIVEN [employer] Prev. PAP: NONE GIVEN [facility] Prev. BX: NONE GIVEN [employer] [facility] SOURCE: None given [employer] Statement Of Adequacy: Xeros Comment: Satisfactory for evaluation. Endocervical/transformation zone component present. Interpretation/ Result: Negative for intraepithelial lesion or malignancy. [employer] Infection Shift in vaginal emilee suggestive of bacterial vaginosis. [facility] COMMENT: This Pap test has been evaluated with computer assisted technology. [employer] Cytotechnologis t: [employer] Comment: WXW, CT(ASCP) CT Screening Location: [address] [address] Review [employer]: [employer] Comment: GSG, CT(ASCP) CT screening location: [address] ??[address] (Always Message) [employer] Comment: EXPLANATORY NOTE: The Pap is a screening test for cervical cancer. It is not a diagnostic test and is subject to false negative and false positive results. It is most reliable when a satisfactory sample, regularly obtained, is submitted with relevant clinical findings and history, and when the Pap result is evaluated along with historic and current clinical information. HPV DNA, High Risk, Cervical Detected(A) NOT DETECTED [facility] [place] Comment: Detected One or more High Risk HPV types (16,18,31,33, 35,39,45,51,52,56,58,59,66,68) was detected. Methodology: Real Time PCR ? 04/16/2022 04/17/2022 9:2 7 AM EST Narrative [facility] - 05/03/2022 10:24 AM EST FASTING: UNKNOWN Tran Rogers MD LAB CYTOLOGY ORDERABLES Final Result Performing Organization Address [facility] de Phone Number [facility] [address] [place] [address], [facility] [place] [address] [employer] [facility] [address] [facility], ([address]) [place] [address] [facility] JAISON Ly * HPV Genotypes 16 and 18, Cervical (04/16/2022 12:00 AM EST) HPV 16 Not Detected Not Detected [facility] [place] HPV 18 Not Detected Not Detected [facility] [place] [place] Comment:Methodology: Real Ti me PCR 04/16/2022 04/17/2022 9:2 7 AM EST Narrative [facility] - 05/03/2022 10:24 AM EST FASTING: UNKNOWN Tran Rogers MD LAB BLOOD ORDERABLES Final Re sult Performing Organization Address [facility] Co de Phone Number [facility] [address] [place] [address], [place] [address] [facility] [place] [address] [facility] JAISON Ly * HEPATITIS C AB W/REFL TO HCV RNA, QN, PCR (07/27/2020 9:20 AM EDT) HEPATITIS C ANTIBODY NON-REACT JAJA NON-REACT JAJA [facility] INDEX 0.01 <1.00 [facility] Comment: ?? HCV antibody was non-reactive. There is no laboratory ?? evidence of HCV infection. ?? In most cases, no further action is required. However, if recent HCV exposure is suspected, a test for HCV RNA (test code 48533) is suggested. ?? For additional information please refer to http://[facility].cacaoTV/faq/ALW57m4 (This link is being provided for informational/ educational purposes only.) ?? 07/27/2020 9:20 AM EDT Tran Rogers MD HISTORICAL/NON ORDERABLE LABS Final Result [facility] [address] * HIV 1/2 ANTIGEN/ANTIBODY,FOURTH GENERATION W/RFL (07/27/2020 9:20 AM EDT) HIV-1/2 ANTIGEN AND ANTIBODIES, 4TH GENERATION W/ REFLEX NON-REACT JAJA NON-REACT JAJA [facility] Comment: HIV-1 antigen and HIV-1/HIV-2 antibodies were not detected. There is no laboratory evidence of HIV infection. ?? PLEASE NOTE: This information has been disclosed to you from records whose confidentiality may be protected by state law. ??If your state requires such protection, then the state law prohibits you from making any further disclosure of the information without the specific written consent of the person to whom it pertains, or as otherwise permitted by law. A general authorization for the release of medical or other information is NOT sufficient for this purpose. ? For additional information please refer to http://[facility].cacaoTV/faq/GLE631 (This link is being provided for informational/ educational purposes only.) ? The performance of this assay has not been clinically validated in patients less than 2 years old. ?? 07/27/2020 9:20 AM EDT Tran Rogers MD LAB BLOOD ORDERABLES Final Re sult Performing Organization Address City/[facility]/ZIP Co de Phone Number [facility] [address] [place] [address], [place] * LIPID PANEL, STANDARD (07/27/2020 9:20 AM EDT) Chol/HDLC Ratio 2.9 <5.0 (calc) [facility] Cholesterol, Total 163 <200 mg/dL [facility] HDL Cholesterol 57 > OR = 50 mg/dL [facility] LDL Cholesterol 89 mg/dL (calc) [facility] Comment: Reference range: <100 ?? Desirable range <100 mg/dL for primary prevention; ?? <70 mg/dL for patients with CHD or diabetic patients ?? with > or = 2 CHD risk factors. ?? LDL-C is now calculated using the Chantel ?? calculation, which is a validated novel method providing ?? better accuracy than the Friedewald equation in the ?? estimation of LDL-C. ?? Ramiro JACOB et al. NGOC. 2013;310(19): 8612-4204 ?? (http://education.ProPerforma/faq/JZI890) Non-HDL Cholesterol 106 <130 mg/dL (calc) [facility] Comment: For patients with diabetes plus 1 major ASCVD risk ?? factor, treating to a non-HDL-C goal of <100 mg/dL ?? (LDL-C of <70 mg/dL) is considered a therapeutic ?? option. Triglycerides 76 <150 mg/dL [facility] 07/27/2020 9:20 AM EDT us Trna Rogers MD LAB BLOOD ORDERABLES Final Re sult Performing Organization Address City/[facility]/ZIP Co de Phone Number [facility] [address] [place] [address], [place] * Colonoscopy (12/14/2019) Colonoscopy Performed us Historical Provider MD HEALTH MAINTENANCE Final Result from Last 3 Months or Most Recently Relevant to Health Maintenance Insurance [facility] [address] [address] Care Teams Learning Support Specialist Relationship Specialty Start Date End Date Tran Rogers MD [address] [place] [id number] PCP - General Family Medicine 11/10/17
--- OUTSIDE RECORDS SUMMARY | 2024-06-21 12:44 | XMS_ITS | Encounter Summary ---
Author Organization [facility] Address [address] [place] [address] Care Team Providers Care Machine Clipper Name Role Phone Nesha Holloway MD Primary Care Provider [phone] Encounter Details Date Type Department Care Team (Late st Contact Info) Description 01/05/2024 5:53 AM EDT Hospital Encounter TH HISTORIC ENCOUNTERS EASTERN CONVERSION ONLY Mila Kong MD [address] [place] [address] Social History Tobacco Use Types Packs/Day Years [...] Preoperative Diagnosis Excess abdominal skin Surgeon Jaclyn Database Engineer(s) Sakshi Description of Procedure Pt was placed [...] Encounters Date Type Department Care Team (Late st Contact Info) Description 07/07/2024 1:45 PM EDT Office Visit Orthopedic Surgery - [address] [place] [phone] Easton Ritchie DPM [address] [facility] [address] [place] [address] documented as of this encounter Visit Diagnoses Not on filedocumented in this encounter Care Teams Machine Clipper Relationship Specialty Start Date End Date Nesha Holloway MD [address] [place] [address] PCP - General 11/20/23 documented as of this encounter
--- OUTSIDE RECORDS SUMMARY | 2024-06-21 12:44 | XMS_ITS | Encounter Summary ---
Author Organization [employer] Address [address] [place] [address] [address] [place] [address] Care Team Providers Care International Guest Coordinator Name Role Phone Tran Rogers MD Primary Care Provider [phone] Encounter Details Date Type Department Care Team (Latest Contact Info) Description 06/21/2024 10:00 AM EDT Office Visit [facility] [address] [place], [place] [id number] Tran Rogers MD [address] [place] [address] Confusion and disorientation (Primary Dx) Social History Tobacco Use Types Packs/Day Years [...] AM EDT documented as of this encounter Last Filed Vital Signs Vital Sign Reading [...] Mass Index 22.66 06/21/2024 9:57 AM EDT documented in this encounter Plan of Treatment Upcoming Encounters Date Type Department Care Team (Late st Contact Info) Description 08/10/2024 11:00 AM EDT Clinical Support [facility] [address] [place] [address] Vesta Marcial RN [address] [place] [address] 08/23/2024 11:30 AM EDT Office Visit [facility] [address] [place] [address] Tran Rogers MD [address] [place] [address] Scheduled Orders Name Type Priority Associated Diagnoses Orde r Schedule [place] Lab Routine Confusion and disorientation Expected: 06/21/2024, Expires: 06/21/2025 TSH W/Reflex to FT4 Lab Routine Confusion and disorientation Expected: 06/21/2024 (Approximate), Expires: 06/21/2025 Vitamin B12/Folate, Serum Panel Lab Routine Confusion and disorientation Expected: 06/21/2024, Expires: 06/21/2025 Syphilis Screen Lab Routine Confusion and disorientation Expected: 06/21/2024, Expires: 06/21/2025 Basic Metabolic Panel Lab Routine Confusion and disorientation Expected: 06/21/2024 (Approximate), Expires: 06/21/2025 documented as of this encounter Visit Diagnoses Diagnosis Confusion and disorientation- Primary documented in this encounter Additional Health Concerns Assessment Noted Time PHQ-9 Depression Total Score: 11 024 10:16 AM EDT documented as of this encounter Care Teams International Guest Coordinator Relationship Specialty Start Date End Date Tran Rogers MD [address] [place] [address] PCP - General Family Medicine 11/10/17 documented as of this encounter
--- OUTSIDE RECORDS SUMMARY | 2024-06-21 12:44 | XMS_ITS | Encounter Summary ---
Author Organization [employer] Address [address] [place] [address] [address] [place] [address] Care Team Providers Care Tumbling Machine Operator Name Role Phone Tran Rogers MD Primary Care Provider [phone] Encounter Details Date Type Department Care Team ([facility] st Contact Info) Description 09/30/2022 Orders Only [facility] [address] [place], [place] [phone] Tran Rogers MD [address] [place] [address] Endometrial mass (Primary Dx) Social History Tobacco Use Types [...] Orientation Straight 01/20/2022 10 :30 AM EDT COVID-19 Exposure Response Date Recorded In the last 10 days, have yo u been in contact with someone who was confirmed or suspected to have Coronavirus/COVID-19? No / Unsure 09/11/2022 2:13 PM EDT documented as of this encounter Plan of Treatment Upcoming Encounters Date Type Department Care Team (Late st Contact Info) Description 08/10/2024 11:00 AM EDT Clinical Support [facility] [address] [place] [address] Vesta Marcial, RN [address] [place] [address] 08/23/2024 11:30 AM EDT Office Visit [facility] [address] [place] [address] Tran Rogers MD [address] [place] [address] documented as of this encounter Visit Diagnoses Diagnosis Endometrial mass- Primary documented in this encounter Care Teams Tumbling Machine Operator Relationship Specialty Start Date End Date Tran Rogers MD [address] [place] [address] PCP - General Family Medicine 11/10/17 documented as of this encounter
--- OUTSIDE RECORDS SUMMARY | 2024-06-21 12:44 | XMS_ITS | Clinical Summary ---
Author Organization [facility] Address [address] [place] [address] Care Team Providers Care Paint Spray Inspector Name Role Phone Nesha Holloway MD Primary Care Provider [phone] Allergies Active Allergy Reactions Criticality Noted Date Comments Penicillins Hives,Rash 10/29/2017 Medications MELOXICAM ORAL Take by mouth. Active famotidine (PEPCID) 20 mg tablet Take 1 tablet (20 mg total) by mouth 2 (two) times a day. Active Active Problems Problem Noted Date Diagnosed Date Hyperlipidemia 01/04/2024 Intestinal malabsorption following gastrectomy 1 04/10/2018 Over weight 02/08/2019 Anxiety 09/28/2018 Overview (01/04/2024): 05/04/18 clonazepam for anxiety attacks Chronic back pain 09/28/2018 GERD (gastroesophageal reflux disease) 9 Mood disorder 09/28/2018 Osteoarthritis of both knees 09/28/2018 Seasonal allergies 09/28/2018 Encounters Date Type Department Care Team Description 06/16/2024 8:04 PM EDT - 06/16/2024 9:40 PM EDT Emergency [facility] Emergency [address] [place] [address] Confusion, hx of, without neuro findings (Primary Dx) Discharge Disposition: Home or Self Care from Last 3 Months Surgical History Surgery Date Site/Laterality Comments CATARACT EXTRACTION Left PROCEDURE: HISTORICAL CATARACT REMOVAL Medical History Medical History Date Comments Hyperlipidemia DX:Hyperlipidemi a Anxiety 09/28/2018 DX:Anxiety; COMM ENT: 05/04/18 clonazepam for anxiety attacks Chronic back pain 09/28/2018 DX:Chronic liv k pain GERD (gastroesophageal reflux disease) 09/28/2018 DX:GERD (gastroesophageal reflux disease) Mood disorder (CMS/HCC) 09/28/2018 DX:Mood disorder (HCC) Obesity, Class II, BMI 35-39.9 10/29/2017 D X:Obesity, Class II, BMI 35-39.9 Osteoarthritis of both knees 09/28/2018 DX: Osteoarthritis of both knees Seasonal allergies 09/28/2018 DX:Seasonal a llergies Family History Medical History Relation Name Comments Other: dm Mother Relation Name Status Comments Mother Alive Social History Tobacco Use Types Packs/Day Years [...] Orientation Straight 06/16/2024 8: 16 PM EDT Obstetrics History Last Filed Vital Signs Vital Sign Reading Time Taken Comments Blood Pressure 134/77 06/16/2024 8:12 PM EDT Pulse 68 06/16/2024 8:12 PM EDT Temperature 36.7 ??C (98.1 ??F) 06/16/2024 8:12 PM ED T Respiratory Rate 17 06/16/2024 8:12 PM EDT Oxygen Saturation 100% 06/16/2024 8:12 PM EDT Inhaled Oxygen Concentration - - Weight 61.2 kg (135 lb) 06/16/2024 5:14 PM EDT Height 162.6 cm (5' 4 ) 06/16/2024 5:14 PM EDT Body Mass Index 23.17 06/16/2024 5:14 PM EDT Plan of Treatment Upcoming Encounters Date Type Department Care Team (Late st Contact Info) Description 07/07/2024 1:45 PM EDT Office Visit Orthopedic Surgery - [place] [address] [place] [id number] Easton Ritchie, DPIsabel [address] [facility] [address] [place] [address] Health Maintenance Due Date Last Done Comments Pneumococcal Vaccine: 50+ Years (1 of 2 - PCV) 12/05/1979 Pneumococcal Vaccine: Pediatrics (0 to 5 Years) and At-Risk Patients (6 to 64 Years) (1 of 2 - PCV) 12/05/1979 Cervical Cancer Screening: P ap Smear 1981 Hepatitis B Vaccines (3 of 3 - 19+ 3-dose series) 04/16/2019 11/25/2018, 10/14/2018 Colorectal Cancer Screening: Colonoscopy 02/23/2022 Hepatitis C Screening 02/23/2022 Medicare Annual Wellness Visit 02/23/2022 Osteoporosis Screening (Bone Density Screening) 02/23/2022 Social Influencers of Health Screening 02/23/2022 COVID-19 Vaccine (4 - 2023-2 5 season) 2023 05/03/2021, 06/28/2020, 06/01/2020 Depression Screening 07/13/2024 07/14/2023 Influenza Vaccine (Season Ended) 2024 02/12/2022, 04/08/2019 Cholesterol Screening (Lipid Panel) 07/27/2025 07/27/2020, 03/22/2018 Breast Cancer Screening 08/12/2025 08/13/2023 DTaP,Tdap,and Td Vaccines (3 - Td or Tdap) 12/22/2027 12/21/2017, 08/27/2012 RSV Immunization Patients 60 + Years Old (1 - 1-dose 75+ series) 12/05/2035 HIV Screening Completed 07/27/2020 Zoster Vaccines Completed 04/22/2022, [...] on patient's age to complete this topic MMR Vaccines Aged Out No longer eligi ble based on patient's age to complete this topic Meningococcal ACWY Vaccine Aged Out N o longer eligible based on patient's age to complete this topic Meningococcal B Vacine Aged Out No lo nger eligible based on patient's age to complete this topic RSV Immunization Patients Under 20 months Aged Out No longer eligible b ased on patient's age to complete this topic Varicella Vaccines Aged Out No longer eligible based on patient's age to complete this topic Procedures Procedure Name Priority Date/Time Associated Diagnosis Comments ECG ANNOTATED 06/17/2024 XR CHEST 2 VIEWS STAT 06/16/2024 5:40 PM EDT PIKE URINE CULTURE TUBE STAT 06/16/2024 5:30 PM EDT URINALYSIS WITH REFLEX MICROSCOPIC AND CULTURE STAT 06/16/2024 5:30 PM EDT URINALYSIS WITH REFLEX MICROSCOPIC AND CULTURE STAT 06/16/2024 5:30 PM EDT CULTURE URINE STAT 06/16/2024 5:30 PM EDT CBC WITH AUTO DIFFERENTIAL STAT 06/16/2024 5:28 PM EDT AMMONIA STAT 06/16/2024 5:28 PM EDT COMPREHENSIVE METABOLIC PANEL STAT 06/16/2024 5:28 PM EDT CBC AND DIFFERENTIAL STAT 06/16/2024 5:28 PM EDT ECG 12-LEAD STAT 06/16/2024 5:19 PM EDT TRACY SCREENING DIGITAL Routine 08/13/2023 3:32 PM EDT Encounter for screening mammogram for malignant neoplasm of breast LIPID PANEL Routine 03/22/2018 from Last 3 Months or Most Recently Relevant to Health Maintenance Results * ECG-Annotated (06/17/2024) us Provider Onbase MD ECG ORDERABLES Final Result * XR Chest 2 Views (06/16/2024 5:40 PM EDT) Anatomical Region Laterality Modality Body Radiographic Ellen ging 06/17/2024 9:06 AM EDT Impressions 06/17/2024 9:07 AM EDT Impression: No active pulmonary process identified. Telerad PA ([id number]) -------- FINAL REPORT -------- Dictated By: Sandy Reynoso Dictated Date: 06/17/2024 09:06 ET Assigned Physician: Sandy Reynoso Reviewed and Electronically Signed By: Sandy Reynoso Signed Date: 06/17/2024 09:07 ET Workstation ID: [id number] Transcribed By: Self Edit Transcribed Date: 06/17/2024 09:06 ET Narrative 06/17/2024 9:07 AM EDT History: Weakness. Delirium. Comparison: 09/24/23 Findings: PA and lateral views. The cardiac silhouette remains normal in size. Atherosclerotic calcification is seen in the aortic arch. The lungs are hyperinflated but clear. The costophrenic angles are sharp. The regional skeleton is intact. Procedure Note Sandy Reynoso MD - 06/17/2024 History: Weakness. Delirium. Comparison: 09/24/23 Findings: PA and lateral views. The cardiac silhouette remains normal in size.Atherosclerotic calcification is seen in the aortic arch. The lungs arehyperinflated but clear. The costophrenic angles are sharp. The regional skeleton is intact. IMPRESSION: Impression: No active pulmonary process identified. Telerad PA ([id number]) -------- FINAL REPORT -------- Dictated By: Sandy Reynoso Dictated Date: 06/17/2024 09:06 ET Assigned Physician: Sandy Reynoso Reviewed and Electronically Signed By: Sandy Reynoso Signed Date: 06/17/2024 09:07 ET Workstation ID: [id number] Transcribed By: Self Edit Transcribed Date: 06/17/2024 09:06 ET us Suman Botello MD IMG XR PROCEDURES Final Res ult * (ABNORMAL) Urinalysis with reflex microscopic and culture (06/16/2024 5:30 PM EDT) Specific [place] Urine 1.027 1.003 - 1.030 LAB URINALYSIS - AUTOMATED METHOD 06/16/2024 7:10 PM [facility] pH, Urine 6.0 5.0 - 8.0 pH LAB URINALYSIS - AUTOMATED METHOD 06/16/2024 7:10 PM [facility] Leukocytes, Urine Small(A) Negative LAB URINALYSIS - AUTOMATED METHOD 06/16/2024 7:10 PM [facility] Nitrite, Urine Negative Negative LAB URINALYSIS - AUTOMATED METHOD 06/16/2024 7:10 PM [facility] Protein, Urine Trace <=Trace mg/dL LAB URINALYSIS - AUTOMATED METHOD 06/16/2024 7:10 PM [facility] Glucose, Urine Negative Negative mg/dL LAB URINALYSIS - AUTOMATED METHOD 06/16/2024 7:10 PM [facility] Ketones, Urine Trace(A) Negative mg/dL LAB URINALYSIS - AUTOMATED METHOD 06/16/2024 7:10 PM [facility] Urobilinogen , Urine 0.2 0.2 - 1.0 mg/dL LAB URINALYSIS - AUTOMATED METHOD 06/16/2024 7:10 PM [facility] Bilirubin, Urine Negative Negative LAB URINALYSIS - AUTOMATED METHOD 06/16/2024 7:10 PM [facility] Blood, Urine Negative Negative LAB URINALYSIS - AUTOMATED METHOD 06/16/2024 7:10 PM [facility] RBC, Urine 4.0 0 - 4 /HPF LAB URINALYSIS - AUTOMATED METHOD 06/16/2024 7:10 PM [facility] WBC, Urine 20.6(H) 0 - 4 /HPF LAB URINALYSIS - AUTOMATED METHOD 06/16/2024 7:10 PM EDT [facility] Squamous Epithelial, Urine 74(H) 0 - 60 /LPF LAB URINALYSIS - AUTOMATED METHOD 06/16/2024 7:10 PM EDT [facility] Non-Squamous Epithelial, Urine Rare Transitional epithelial cells. /LPF 06/16/2024 7:10 PM EDT [facility] Crystals, Urine Heavy Calcium Oxalate crystals. /LPF 06/16/2024 7:10 PM EDT [facility] Bacteria, Urine Negative Negative /HPF LAB URINALYSIS - AUTOMATED METHOD 06/16/2024 7:10 PM EDT [facility] Hyaline Casts, Urine 0 0 - 3 /LPF LAB URINALYSIS - AUTOMATED METHOD 06/16/2024 7:10 PM EDT [facility] Mucus, Urine Large None /HPF 06/16/2024 7:10 PM EDT [facility] Urine Urine specimen obtained by clean catch procedure / Unknown Non-blood Collection / Unknown 06/16/2024 5:30 PM EDT 06/16/2024 6:37 PM EDT Suman Botello MD LAB URINE ORDERABLES Final Result [facility] [address] [place] [address], * Pike urine culture tube (06/16/2024 5:30 PM EDT) Extra Tube Hold for add-ons. 06/16/2024 8:01 PM EDT [facility] Comment:Auto resulted. Urine Urine specimen obtained by clean catch procedure / Unknown Non-blood Collection / Unknown 06/16/2024 5:30 PM EDT 06/16/2024 6:37 PM EDT Suman Botello MD LAB URINE ORDERABLES Final Result Performing Organization Address City/[facility]/ZIP Co de Phone Number [facility] [address] [place] [address], [place] [phone] * Culture urine (06/16/2024 5:30 PM EDT) [facility] Culture, Urine 10,000-49,000 CFU/mL Mixed bacterial morphotypes present suggestive of possible contamination during collection. Suggest appropriate recollection if clinically indicated. 06/18/2024 10:51 AM EDT [facility] Urine Urine specimen obtained by clean catch procedure / Unknown Non-blood Collection / Unknown 06/16/2024 5:30 PM EDT 06/16/2024 7:10 PM EDT Suman Botello MD LAB MICROBIOLOGY - GENERAL ORDERABLES Final Result Performing Organization Address [facility]/ZIP Co de Phone Number [facility] [address] [place] [address], [place] [phone] * (ABNORMAL) CBC auto differential (06/16/2024 5:28 PM EDT) [facility] WBC 5.5 4.8 - 10.8 K/mcL LAB HEMETOLOGY METHOD 06/16/2024 6:49 PM EDT [facility] RBC 4.30 3.80 - 4.80 M/mcL LAB HEMETOLOGY METHOD 06/16/2024 6:49 PM EDT [facility] Hemoglobin 11.4(L) 11.5 - 16.0 g/dL LAB HEMETOLOGY METHOD 06/16/2024 6:49 PM EDT [facility] Hematocrit 37.5 35.0 - 47.0 % LAB HEMETOLOGY METHOD 06/16/2024 6:49 PM EDT [facility] MCV 87.2 79.0 - 98.0 FL LAB HEMETOLOGY METHOD 06/16/2024 6:49 PM EDT [facility] MCH 26.5(L) 27.0 - 32.0 pcg LAB HEMETOLOGY METHOD 06/16/2024 6:49 PM EDT [facility] MCHC 30.4(L) 32.0 - 37.0 g/dL LAB HEMETOLOGY [facility] RDW 13.7 11.0 - 15.0 % LAB HEMETOLOGY METHOD 06/16/2024 6:49 PM EDT [facility] Platelets 357 130 - 400 K/mcL LAB HEMETOLOGY METHOD [facility]/16[facility]2024 6[facility] MPV 9.4 7.0 - 11.0 FL LAB HEMETOLOGY METHOD 06/16/2024 6:49 [facility] NRBC 0.0 <1.0 % LAB HEMETOLOGY METHOD 06/16/2024 6:49 [facility] NRBC Absolute 0.00 <0.10 K/mcL LAB HEMETOLOGY METHOD 06/16/2024 6:49 [facility] Neutrophils Relative 60.7 % LAB HEMETOLOGY METHOD 06/16/2024 6:49 PM [facility] Lymphocytes Relative 30.2 % LAB HEMETOLOGY METHOD 06/16/2024 6:49 PM EDT [facility] Monocytes Relative 7.5 % LAB HEMETOLOGY METHOD 06/16/2024 6:49 PM EDT [facility] Eosinophils Relative 0.7 % LAB HEMETOLOGY METHOD 06/16/2024 6:49 [facility] Basophils Relative 0.5 % LAB HEMETOLOGY METHOD 06/16/2024 6:49 [facility] Immature Granulocytes Relative 0.4 % LAB HEMETOLOGY METHOD 06/16/2024 6:49 PM EDT [facility] Neutrophils Absolute 3.33 1.50 - 7.00 K/mcL LAB HEMETOLOGY METHOD 06/16/2024 6:49 PM EDT [facility] Lymphocytes Absolute 1.66 1.00 - 5.00 K/mcL LAB HEMETOLOGY METHOD 06/16/2024 6:49 PM EDT [facility] Monocytes Absolute 0.41 0.20 - 1.00 K/mcL LAB HEMETOLOGY METHOD 06/16/2024 6:49 PM EDT [facility] Eosinophils Absolute 0.04 0.00 - 0.50 K/mcL LAB HEMETOLOGY METHOD 06/16/2024 6:49 PM EDT [facility] Basophils Absolute 0.03 0.00 - 0.20 K/mcL LAB HEMETOLOGY METHOD 06/16/2024 6:49 PM EDT [facility] Immature Granulocytes Absolute 0.02 0.00 - 0.03 K/mcL LAB HEMETOLOGY METHOD 06/16/2024 6:49 PM EDT [facility] Blood Venous blood specimen / Unknown Venipuncture / Unknown 06/16/2024 5:28 PM EDT 06/16/2024 6:39 PM EDT us Suman Botello MD LAB BLOOD ORDERABLES Final Result [facility] [address] [place] [address], * Ammonia (06/16/2024 5:28 PM EDT) Ammonia 27 11 - 35 mcmol/L LAB CHEMISTRY METHOD 06/16/2024 6:55 PM EDT [facility] Blood Venous blood specimen / Unknown Venipuncture / Unknown 06/16/2024 5:28 PM EDT 06/16/2024 6:37 PM EDT us Suman Botello MD LAB BLOOD ORDERABLES Final Result [facility] [address] [place] [address], * (ABNORMAL) Comprehensive metabolic panel (06/16/2024 5:28 PM EDT) Sodium 141 133 - 145 mmol/L LAB CHEMISTRY METHOD 06/16/2024 7:37 PM EDT [facility] Potassium 3.4(L) 3.5 - 5.5 mmol/L LAB CHEMISTRY METHOD 06/16/2024 7:37 PM [facility] Chloride 106 96 - 110 mmol/L LAB CHEMISTRY METHOD 06/16/2024 7:37 PM [facility] CO2 30 21 - 32 mmol/L LAB CHEMISTRY METHOD 06/16/2024 7:37 PM [facility] Anion Gap 5 3 - 11 LAB CHEMISTRY METHOD 06/16/2024 7:37 PM [facility] Glucose 108(H) 70 - 100 mg/dL LAB CHEMISTRY METHOD 06/16/2024 7:37 PM [facility] BUN 16 5 - 25 mg/dL LAB CHEMISTRY METHOD 06/16/2024 7:37 PM [facility] Creatinine 0.60 0.50 - 1.10 mg/dL LAB CHEMISTRY METHOD 06/16/2024 7:37 PM [facility] eGFR 101 >=60 mL/min/1. 73m2 LAB CHEMISTRY METHOD 06/16/2024 7:37 PM [facility] Comment:Calculation based on the??Chronic Kidney Disease Epidemiology Collaboration (CKD-EPI) equation refit??without adjustment for race. BUN/Creatinine Ratio 26.7 LAB CHEMISTRY METHOD 06/16/2024 7:37 PM T [facility] Calcium 8.8 8.5 - 10.5 mg/dL LAB CHEMISTRY METHOD 06/16/2024 7:37 PM EDT [facility] AST (SGOT) 14 10 - 42 unit/L LAB CHEMISTRY METHOD 06/16/2024 7:37 PM EDT [facility] ALT (SGPT) 18 10 - 60 unit/L LAB CHEMISTRY METHOD 06/16/2024 7:37 PM EDT [facility] Alkaline Phosphatase 88 42 - 121 unit/L LAB CHEMISTRY METHOD 06/16/2024 7:37 PM EDT [facility] Total Protein 6.8 6.0 - 8.0 g/dL LAB CHEMISTRY METHOD 06/16/2024 7:37 PM EDT [facility] Albumin 3.7 3.2 - 5.0 g/dL LAB CHEMISTRY METHOD 06/16/2024 7:37 PM EDT [facility] Total Bilirubin 0.3 0.0 - 1.4 mg/dL LAB CHEMISTRY METHOD 06/16/2024 7:37 PM EDT [facility] Blood Venous blood specimen / Unknown Venipuncture / Unknown 06/16/2024 5:28 PM EDT 06/16/2024 6:39 PM EDT us Suman Botello MD LAB BLOOD ORDERABLES Final Result [facility] [address] [place] [address], * ECG 12 lead (06/16/2024 5:19 PM EDT) Ventricular Rate ECG 79 BPM GEMUSE Atrial Rate 79 BPM GEMUSE P-R Interval 166 ms GEMUSE QRS Duration 94 ms GEMUSE Q-T Interval 388 ms GEMUSE QTc 444 ms GEMUSE P Wave [place] 53 degrees GEMUSE R [place] 2 degrees GEMUSE T [place] 31 degrees GEMUSE ECG Interpretation Normal sinus rhythm When compared with ECG of 24-SEP-2023 14:20, No significant change was found Confirmed by DOROTHY WALKER ([id number]) on 06/16/2024 9:13:09 PM GEMUSE 06/16/2024 5:19 PM EDT 06/16/2024 9:13 PM EDT us Suman Botello MD ECG ORDERABLES Final Resul t GEMUSE * TRACY SCREENING DIGITAL (08/13/2023 3:32 PM EDT) Anatomical Region Laterality Modality Mammography 08/12/2023 7:17 AM EDT Narrative 08/13/2023 3:32 PM EDT [facility] Diagnostic Imaging Department [address] [place], [place] [id number] Patient: ??MADSEN,ROCK N ?/Age/Sex: 1960 - 62 - F Unit#: ??[id number] ? Location/Status: ??SPDIMAM/REG CLI ? Mnemonic/Ordering Site: ??DIGSC/SPMAM Ordering Physician: ??SP RAY [facility] Screening Digital - 08/12/23 [id number] Report Status:Signed EXAM: [facility] Screening Digital EXAM DATE AND TIME: 08/12/2023 7:34 AM HISTORY: ??Screening. Sister had breast carcinoma. COMPARISON: ??10/11/21, 09/17/20, 4 1619 hours [place] TECHNIQUE: Bilateral digital breast tomosynthesis was performed in the CC and MLO projections. Computer aided detection with Flashtalking 3D 3.1 was employed. TISSUE DENSITY: b. There are scattered areas of fibroglandular density. FINDINGS: No suspicious masses, grouped microcalcifications, or areas of architectural distortion are seen. The skin and vascularity are unremarkable. IMPRESSION: Stable mammographic appearance of the breasts. ??No evidence of malignancy is seen. A negative mammogram in the presence of a clinically suspicious palpable abnormality does not preclude the possibility of malignancy or alter the indications for biopsy. BI-RADS: ??Category 1: Negative RECOMMENDATION(S): 1: Routine screening mammogram BILATERAL in 1 year. Dictating Physician: ??SANDY REYNOSO MD Electronically Signed by: ??SANDY REYNOSO MD Dic Date/Time: ??08/13/23 1532 Sign date/Time: ??08/13/23 1532 Procedure Note Sandy Reynoso MD - 11/09/2023 [facility] Diagnostic Imaging Department [address] [place] [id number] Patient: TENAROCK Galan /Age/Sex: 1960 - 62 - F Unit#: [id number] Location/Status: [facility]/REG CLI Mnemonic/Ordering Site: [facility] Ordering Physician: SP RAY [facility] Screening Digital - 08/12/23 - [id number] Report Status:Signed EXAM: [facility] Screening Digital EXAM DATE AND TIME: 08/12/2023 7:34 AM HISTORY: Screening. Sister had breast carcinoma. COMPARISON: 10/11/21, 09/17/20, 4 1619 hours [place] TECHNIQUE: Bilateral digital breast tomosynthesis was performed in the CCand MLO projections. Computer aided detection with Flashtalking 3D 3.1was employed. TISSUE DENSITY: b. There are scattered areas of fibroglandular density. FINDINGS: No suspicious masses, grouped microcalcifications, or areas ofarchitectural distortion are seen. The skin and vascularity are unremarkable. IMPRESSION: Stable mammographic appearance of the breasts. No evidence of malignancyis seen. A negative mammogram in the presence of a clinically suspicious palpable abnormality does not preclude the possibility of malignancy or alter the indications for biopsy. BI-RADS: Category 1: Negative RECOMMENDATION(S): 1: Routine screening mammogram BILATERAL in 1 year. Dictating Physician: SANDY REYNOSO MD Electronically Signed by: SANDY REYNOSO MD Dic Date/Time: 08/13/23 1532 Sign date/Time: 08/13/23 1532 Sp Ray MD IMG BI PROCEDURES Final Resul t * (ABNORMAL) Lipid panel (03/22/2018) LDL/HDL Ratio 4 0 - 4 Triglycerides 251(A) 0 - 150 mg/dL Cholesterol 198 0 - 200 mg/dL HDL 49 >=40 mg/dL LDL Cholesterol 99 0 - 100 mg/dL Blood Venous blood specimen / Unknown Historical Provider LAB BLOOD ORDERABLES Belinda l Result from Last 3 Months or Most Recently Relevant to Health Maintenance Insurance [facility] MEDIC[facility] Member Subscriber Plan / Payer (Ef fective 2019-Present) Name:Rock Madsen Relation to Subscriber:Self Name:Rock Madsen Payer ID:[id number] Group ID:[id number] Type:Not on file Address: [facility] [address] [id number] Care Teams Paint Spray Inspector Relationship Specialty Start Date End Date Nesha Holloway MD [address] [place] [address] PCP - General 11/20/23
--- OUTSIDE RECORDS SUMMARY | 2024-06-21 12:44 | XMS_ITS | Encounter Summary ---
Author Organization [facility] Address [address] [place] [address] Care Team Providers Care Cloth Coverer Name Role Phone Nesha Holloway MD Primary Care Provider [phone] Reason for Visit * Reason Comments Weakness - Generalized SINCE THIS AM Encounter Details Date Type Department Care Team (Late st Contact Info) Description 06/16/2024 8:04 PM EDT - 06/16/2024 9:40 PM EDT Emergency [facility] Emergency [address] [place] [id number] Confusion, hx of, without neuro findings (Primary Dx) Discharge Disposition: Home or Self Care Social History Tobacco Use Types Packs/Day Years [...] PM EDT documented as of this encounter Last [...] Mass Index 23.17 06/16/2024 5:14 PM EDT documented in this encounter Functional Status * Are you deaf or do you have serious difficulty hearing? Answer Date of Assessment Author No 06/16/2024 8:09 PM EDT Rubi León RN * Are you blind or do you have serious difficulty seeing, even when wearing glasses? Answer Date of Assessment Author No 06/16/2024 8:09 PM EDT Rubi León RN * Do you have serious difficulty walking or climbing stairs? Answer Date of Assessment Author No 06/16/2024 8:09 PM EDT Rubi León RN * Do you have serious difficulty dressing or bathing? Answer Date of Assessment Author No 06/16/2024 8:09 PM EDT Rubi León RN * Because of a physical, mental, or emotional condition, do you have serious difficulty doing errandsalone such as visiting the doctor? Answer Date of Assessment Author No 06/16/2024 8:09 PM EDT Rubi León RN documented as of this encounter Mental Status * Because of a physical, mental, or emotional condition, do you have serious difficulty concentrating, remembering, or making decisions? (5 years old or older) Answer Entry Date Author No 06/16/2024 8:09 PM EDT Rubi León RN documented in this encounter Discharge Instructions * Discharge Instructions* PIO Bright - 06/16/2024 9:35 PM EDT Thank you for choosing [facility]'s Emergency Department for your care today. Thankfully your laboratory evaluation, EKG, urinalysis, chest x-ray, and exam today are all markedly reassuring. There is no evidence of any acute emergent process responsible for your ongoing episodes of confusion and disorientation over the past few months. There is no occasion for admission to the hospital or continued ED observation, and it is safe to discharge you home. Please stay well hydrated and get plenty of rest Please follow up with your primary care physician and psychiatrist for re- evaluation, additional management of your symptoms, and continued preventative care. If you do not have a primary care physician, please call the [facility] at [phone] toestablish a new primary care physician. Please return to the emergency department if you develop a sudden severe change in your symptoms orif you experience any other new or worsening symptoms or concerns. * Attachments The following attachments cannot be sent through Care Everywhere. * Altered Mental Status (French) documented in this encounter Medications at Time of Discharge famotidine (PEPCID) 20 mg tablet Take 1 tablet (20 mg total) by mouth 2 (two) times a day. MELOXICAM ORAL Take by mouth. documented as of this encounter Discharge Disposition Disposition Code Departure Means Destination Comment s Home or Self Care documented in this encounter Progress Notes * Nyasia Wise RN - 06/16/2024 5:10 PM EDT Presents c/o confusion/altered mental status per her visitor. States the pt went to her friends house and she could not remember how she got there. When asking the pt how she feels at the moment she states she feels very anxious.. States she has hx of anxiety but states this feels different. Neurosfully intact in triage. Pt answering all my question appropriately in triage * PIO Bright - 06/16/2024 5:08 PM EDT Emergency Medicine Note Patient Name: Yulissa Desouza Initial Evaluation: 06/16/2024 : 1960 Patient's PCP: Nesha Holloway MD Emergency Physician: PIO Bright History of Present Illness Chief Complaint: Chief Complaint Patient presents with Weakness - Generalized SINCE THIS AM HPI: The patient is a 63-year-old man speaking female with history of anxiety, GERD, hyperlipidemia, mood disorder, schizophrenia, and osteoarthritis presenting to the ED for evaluation of increasingly frequent episodes of confusion and anxiety. A denture finisher was utilized for the duration of patient interview and exam. The patient reports she has had an extensive history of psychosis episodes where she loses her memory and becomes anxious and confused. The patient reportedly presentedto her friend's house this morning and was unable to recall how she got there. The patient reports she has had intermittent and nonpersistent headaches, which occur independently of her psychosis episodes. The patient reports this has been ongoing for the past 3+ months, patient reports she currently follows with a psychiatrist and PCP, patient becomes agitated and states neither the psychiatristor PCP want to listen to her or do anything with the episodes. The patient states she presents to the ED today because I want a head to toe exam of everything to see why this is happening. The patient denies any recent fall, car accident, or blunt head trauma, denies anticoagulation denies any focal neurological deficits. The patient denies any associated chest pain, shortness of breath, abdominal pain, vomiting, diarrhea, dysuria, hematuria, recent illness or recent sick contacts. The patient states she has appointment tomorrow to change her PCP to a new PCP for a second opinion. The patient is unable to identify any new or different symptoms that prompted ED evaluation today compared tothese episodes occurring over the past 3 months. ROS: I have performed a ROS with the pertinent positives and negatives documented in the history ofpresent illness. Previous History Past Medical History: Diagnosis Date Anxiety 09/28/2018 DX:Anxiety; COMMENT: 05/04/18 clonazepam for anxiety attacks Chronic back pain 09/28/2018 DX:Chronic back pain GERD (gastroesophageal reflux disease) 09/28/2018 DX:GERD (gastroesophageal reflux disease) Hyperlipidemia DX:Hyperlipidemia Mood disorder (CMS/HCC) 09/28/2018 DX:Mood disorder (HCC) Obesity, Class II, BMI 35-39.9 10/29/2017 DX:Obesity, Class II, BMI 35-39.9 Osteoarthritis of both knees 09/28/2018 DX:Osteoarthritis of both knees Seasonal allergies 09/28/2018 DX:Seasonal allergies Past Surgical History: Procedure Laterality Date CATARACT EXTRACTION Left PROCEDURE: HISTORICAL CATARACT REMOVAL Social History Tobacco Use Smoking status: Light Smoker Smokeless tobacco: Never Substance Use Topics Alcohol use: Yes Drug use: No Family History Problem Relation Name Age of Onset Other (Other: dm) Mother is allergic to penicillins. No current facility-administered medications on file prior to encounter. Current Outpatient Medications on File Prior to Encounter Medication Sig Dispense Refill famotidine (PEPCID) 20 mg tablet Take 1 tablet (20 mg total) by mouth 2 (two) times a day. MELOXICAM ORAL Take by mouth. Physical Exam Vitals: 06/16/24 1714 06/16/242011 BP: (!) 150/102 134/77 BP Location: Left arm Right arm Patient Position: Sitting Lying Pulse: 87 68 Resp: 16 17 Temp: 36.8 ??C (98.2 ??F) 36.7 ??C (98.1 ??F) TempSrc: Oral Oral SpO2: 100% 100% Weight: 61.2 kg (135 lb) Height: 1.626 m (64 ) CONSTITUTIONAL: The patient appears non-toxic, well nourished and in no acute distress. Vital signsreviewed as documented. HEAD: Atraumatic, normocephalic. EYES: EOMs grossly intact, pupils equal, conjunctiva clear, no exudate. ENT: Nares patent, no discharge. Airway patent, no audible stridor, visible mucosa is pink and moist without noted lesions. NECK: Trachea is midline, no obvious masses or gross abnormalities. CHEST: Symmetric movement, normal appearance. LUNGS: LS present and CTAB, no w/r/r. Non-labored work of breathing. CARDIAC: Regular Rhythm, S1/S2 appreciated, no murmurs, rubs or gallops. ABDOMEN: Abdomen soft/non-tender x4 quadrants, no masses or organomegaly. : Deferred. EXTREMITIES: Normal tone, moves all extremities spontaneously without reported pain. No obvious injury or deformity noted. NEURO: Alert and oriented x3, CN II-XII intact. Cerebellar Functioning intact. Speech clear and appropriate. PSYCH: normal affect, with appropriate eye contact and fluid, appropriate speech. No reported suicidality or homicidality. SKIN: Warm, dry, color appropriate, normal turgor. No rashes noted. Results Labs Reviewed COMPREHENSIVE METABOLIC PANEL - Abnormal Result Value Sodium 141 Potassium 3.4 (*) Chloride 106 CO2 30 Anion Gap 5 Glucose 108 (*) BUN 16 Creatinine 0.60 eGFR 101 BUN/Creatinine Ratio 26.7 Calcium 8.8 AST (SGOT) 14 ALT (SGPT) 18 Alkaline Phosphatase 88 Total Protein 6.8 Albumin 3.7 Total Bilirubin 0.3 CBC WITH AUTO DIFFERENTIAL - Abnormal WBC 5.5 RBC 4.30 Hemoglobin 11.4 (*) Hematocrit 37.5 MCV 87.2 MCH 26.5 (*) MCHC 30.4 (*) RDW 13.7 Platelets 357 MPV 9.4 NRBC 0.0 NRBC Absolute 0.00 Neutrophils Relative 60.7 Lymphocytes Relative 30.2 Monocytes Relative 7.5 Eosinophils Relative 0.7 Basophils Relative 0.5 Immature Granulocytes Relative 0.4 Neutrophils Absolute 3.33 Lymphocytes Absolute 1.66 Monocytes Absolute 0.41 Eosinophils Absolute 0.04 Basophils Absolute 0.03 Immature Granulocytes Absolute 0.02 URINALYSIS WITH REFLEX MICROSCOPIC AND CULTURE - Abnormal Specific [place] Urine 1.027 pH, Urine 6.0 Leukocytes, Urine Small (*) Nitrite, Urine Negative Protein, Urine Trace Glucose, Urine Negative Ketones, Urine Trace (*) Urobilinogen, Urine 0.2 Bilirubin, Urine Negative Blood, Urine Negative RBC, Urine 4.0 WBC, Urine 20.6 (*) Squamous Epithelial, Urine 74 (*) Non-Squamous Epithelial, Urine Rare Transitional epithelial cells. Crystals, Urine Heavy Calcium Oxalate crystals. Bacteria, Urine Negative Hyaline Casts, Urine 0 Mucus, Urine Large AMMONIA - Normal Ammonia 27 CULTURE URINE CBC AND DIFFERENTIAL Narrative: The following orders were created for panel order CBC and differential. Procedure Abnormality Status --------- ------ CBC auto differential[[id number]] Abnormal Final result Please view results for these tests on the individual orders. URINALYSIS WITH REFLEX MICROSCOPIC AND CULTURE Narrative: The following orders were created for panel order Urinalysis with reflex microscopic and culture. Procedure Abnormality Status --------- ------ Urinalysis with reflex ...[[id number]] Abnormal Final result Pike urine culture tube[[id number]] Final result Please view results for these tests on the individual orders. POC GLUCOSE Abnormal Labs Reviewed COMPREHENSIVE METABOLIC PANEL - Abnormal; Notable for the following components: Result Value Potassium 3.4 (*) Glucose 108 (*) All other components within normal limits CBC WITH AUTO DIFFERENTIAL - Abnormal; Notable for the following components: Hemoglobin 11.4 (*) MCH 26.5 (*) MCHC 30.4 (*) All other components within normal limits URINALYSIS WITH REFLEX MICROSCOPIC AND CULTURE - Abnormal; Notable for the following components: Leukocytes, Urine Small (*) Ketones, Urine Trace (*) WBC, Urine 20.6 (*) Squamous Epithelial, Urine 74 (*) All other components within normal limits XR Chest 2 Views (Results Pending) I have discussed any resulted incidental/abnormal imaging and/or lab abnormalities with the patientand have instructed them of the need for further evaluation and workup with their primary care doctor. All available laboratory results, imaging results and other diagnostic exam results were reviewed in the EMR. EKG Interpretation EKG shows sinus rhythm with a rate of 79, no evidence of acute ischemia, no ST elevation, no ectopy. QTc 444. Compared to previous on 09/24/2023 there are no acute morphology changes. Critical Care Time None ? Medical Decision Making The patient is a 63-year-old female presenting to the ED for evaluation of ongoing episodes of confusion, described as psychosis with poor memory and anxiety. The patient presented to the ED today stating there is been no acute change in the symptoms over the past 3 months however she is requesting a head to toe evaluation , however patient also states she has an appointment tomorrow in order to change PCP to obtain outpatient workup for her symptoms. The patient reports she is also following with her psychiatrist who per patient report does not intend to make any changes in her current care. The patient's exam is benign, no focal neurological deficit, heart and lungs unremarkable, abdomen nontender no other acute findings, patient does not endorse any suicidal or homicidal ideations. Patient does not appear to be responding to internal stimuli. The patient's laboratory evaluation ismarkedly reassuring, no leukocytosis, anemia, JUDAH, or electrolyte abnormality appreciated. Urinalysis performed shows findings consistent with contamination, no evidence of UTI, patient denies any urinary symptoms. Ammonia level is normal. EKG is nonischemic, chest x-ray shows no focal consolidation, no acute cardiopulmonary process identified. The patient was updated regarding her reassuring workup, upon hearing her reassuring workup the patient became highly agitated and patient stating she wanted to be discharged and wanted a copy of her workup to be provided to her new primary care provider she is changing to tomorrow. At this time there is no evidence of any acute emergent process requiring continued observation or admission, patient will be discharged per her request. ED Course as of 06/16/242142 Chanell Jun 16, [id number] Of note patient and visitor left the ED prior to receiving her discharge instructions, patientwas informed multiple times that the discharge instructions were in the process of being written and printed per her request. Patient subsequently left the ED without her discharge instructions. Thisprovider brought discharge instructions out to the parking lot however patient had already left theED parking lot. [RM] ED Course User Index [RM] PIO Bright Clinical Impressions as of 06/16/242142 Confusion, hx of, without neuro findings Medications - No data to display Procedures Procedures Diagnosis 1. Confusion, hx of, without neuro findings Disposition Discharge ED Prescriptions None Physician Attestation PIO Bright 06/16/242035 PIO Bright 06/16/242131 PIO Bright 06/16/242142 Cosigned by Blake Fernando MD at 06/16/2024 10:18 PM EDT Associated attestation - Blake Fernando MD - 06/16/2024 10:18 PM EDT I have reviewed and I agree with the Nurse practitioner's/Physician zoning assistant's note and plan by PIO Bright dated 06/16/2024, except as noted: None Blake Fernando MD 06/16/24 10:18 PM EDT documented in this encounter Plan of Treatment Upcoming Encounters Date Type Department Care Team (Late st Contact Info) Description 07/07/2024 1:45 PM EDT Office Visit Orthopedic Surgery - [place] [address] [facility] [address] [place] [phone] Easton Ritchie, DPM [address] [address] documented as of this encounter Procedures Procedure Name Priority Date/Time Associated Diagnosis Comments ECG ANNOTATED 06/17/2024 XR CHEST 2 VIEWS STAT 06/16/2024 5:40 PM EDT URINALYSIS WITH REFLEX MICROSCOPIC AND CULTURE STAT 06/16/2024 5:30 PM EDT PIKE URINE CULTURE TUBE STAT 06/16/2024 5:30 PM EDT URINALYSIS WITH REFLEX MICROSCOPIC AND CULTURE STAT 06/16/2024 5:30 PM EDT CULTURE URINE STAT 06/16/2024 5:30 PM EDT CBC WITH AUTO DIFFERENTIAL STAT 06/16/2024 5:28 PM EDT CBC AND DIFFERENTIAL STAT 06/16/2024 5:28 PM EDT AMMONIA STAT 06/16/2024 5:28 PM EDT COMPREHENSIVE METABOLIC PANEL STAT 06/16/2024 5:28 PM EDT ECG 12-LEAD STAT 06/16/2024 5:19 PM EDT documented in this encounter Results * ECG-Annotated (06/17/2024) us Provider Onbase MD ECG ORDERABLES Final Result * XR Chest 2 Views (06/16/2024 5:40 PM EDT) Anatomical Region Laterality Modality Body Radiographic Ellen ging 06/17/2024 9:06 AM EDT Impressions 06/17/2024 9:07 AM EDT Impression: No active pulmonary process identified. [place] PA ([id number]) -------- FINAL REPORT -------- Dictated By: Sandy Reynoso Dictated Date: 06/17/2024 09:06 ET Assigned Physician: Sandy Reynoso Reviewed and Electronically Signed By: Sandy Reynoso Signed Date: 06/17/2024 09:07 ET Workstation ID: [id number] Transcribed By: Self Edit Transcribed Date: 06/17/2024 [...] No active pulmonary process identified. [place]ad PA ([id number]) -------- FINAL REPORT -------- Dictated By: Sandy Reynoso Dictated Date: 06/17/2024 09:06 ET Assigned Physician: Sandy Reynoso Reviewed and Electronically Signed By: Sandy Reynoso Signed Date: 06/17/2024 09:07 ET Workstation ID: [id number] Transcribed By: Self Edit Transcribed Date: 06/17/2024 09:06 ET us Suman Botello MD IMG XR PROCEDURES Final Res ult * Culture urine (06/16/2024 5:30 PM EDT) Culture, Urine 10,000-49,000 CFU/mL Mixed bacterial morphotypes present suggestive of possible contamination during collection. Suggest appropriate recollection if clinically indicated. 06/18/2024 10:51 AM EDT [facility] Urine Urine specimen obtained by clean catch procedure / Unknown Non-blood Collection / Unknown 06/16/2024 5:30 PM EDT 06/16/2024 7:10 PM EDT Suman Botello MD LAB MICROBIOLOGY - GENERAL ORDERABLES Final Result Performing Organization Address [facility]/ZIP Co de Phone Number [facility] [address] [place] [address], [place] [phone] * Pike urine culture tube (06/16/2024 5:30 PM EDT) [facility] Extra Tube Hold for add-ons. 06/16/2024 8:01 PM EDT [facility] Comment:Auto resulted. Urine Urine specimen obtained by clean catch procedure / Unknown Non-blood Collection / Unknown 06/16/2024 5:30 PM EDT 06/16/2024 6:37 PM EDT Suman Botello MD LAB URINE ORDERABLES Final Result Performing Organization Address [facility] de Phone Number [facility] [address] [place] [address], [place] [phone] * (ABNORMAL) Urinalysis with reflex microscopic and culture (06/16/2024 5:30 PM EDT) [facility] Specific [place] Urine 1.027 1.003 - 1.030 LAB URINALYSIS - AUTOMATED METHOD 06/16/2024 7:10 PM EDT [facility] pH, Urine 6.0 5.0 - 8.0 pH LAB URINALYSIS - AUTOMATED METHOD 06/16/2024 7:10 PM EDT [facility] Leukocytes, Urine Small(A) Negative LAB URINALYSIS - AUTOMATED METHOD 06/16/2024 7:10 PM EDT [facility] Nitrite, Urine Negative Negative LAB URINALYSIS - AUTOMATED METHOD 06/16/2024 7:10 PM [facility] Protein, Urine Trace <=Trace mg/dL LAB URINALYSIS - AUTOMATED METHOD 06/16/2024 7:10 PM [facility] Glucose, Urine Negative Negative mg/dL LAB URINALYSIS - AUTOMATED METHOD 06/16/2024 7:10 PM [facility] Ketones, Urine Trace(A) Negative mg/dL LAB URINALYSIS - AUTOMATED METHOD 06/16/2024 7:10 PM [facility] Urobilinogen , Urine 0.2 0.2 - 1.0 mg/dL LAB URINALYSIS - AUTOMATED METHOD 06/16/2024 7:10 PM [facility] Bilirubin, Urine Negative Negative LAB URINALYSIS - AUTOMATED METHOD 06/16/2024 7:10 PM [facility] Blood, Urine Negative Negative LAB URINALYSIS - AUTOMATED METHOD 06/16/2024 7:10 PM [facility] RBC, Urine 4.0 0 - 4 /HPF LAB URINALYSIS - AUTOMATED METHOD 06/16/2024 7:10 PM [facility] WBC, Urine 20.6(H) 0 - 4 /HPF LAB URINALYSIS - AUTOMATED METHOD 06/16/2024 7:10 PM [facility] Squamous Epithelial, Urine 74(H) 0 - 60 /LPF LAB URINALYSIS - AUTOMATED METHOD 06/16/2024 7:10 PM [facility] Non-Squamous Epithelial, Urine Rare Transitional epithelial cells. /LPF 06/16/2024 7:10 PM [facility] Crystals, Urine Heavy Calcium Oxalate crystals. /LPF 06/16/2024 7:10 PM [facility] Bacteria, Urine Negative Negative /HPF LAB URINALYSIS - AUTOMATED METHOD 06/16/2024 7:10 PM EDT [facility] Hyaline Casts, Urine 0 0 - 3 /LPF LAB URINALYSIS - AUTOMATED METHOD 06/16/2024 7:10 PM EDT [facility] Mucus, Urine Large None /HPF 06/16/2024 7:10 PM EDT [facility] Urine Urine specimen obtained by clean catch procedure / Unknown Non-blood Collection / Unknown 06/16/2024 5:30 PM EDT 06/16/2024 6:37 PM EDT us Suman Botello MD LAB URINE ORDERABLES Final Result [facility] [address] [place] [address], [place] [phone] * (ABNORMAL) CBC auto differential (06/16/2024 5:28 PM EDT) WBC 5.5 4.8 - 10.8 K/mcL LAB HEMETOLOGY METHOD 06/16/2024 6:49 PM EDT [facility] RBC 4.30 3.80 - 4.80 M/mcL LAB HEMETOLOGY METHOD 06/16/2024 6:49 PM EDT [facility] Hemoglobin 11.4(L) 11.5 - 16.0 g/dL LAB HEMETOLOGY METHOD 06/16/2024 6:49 PM EDT [facility] Hematocrit 37.5 35.0 - 47.0 % LAB HEMETOLOGY METHOD 06/16/2024 6:49 PM EDT [facility] MCV 87.2 79.0 - 98.0 FL LAB HEMETOLOGY METHOD 06/16/2024 6:49 PM [facility] MCH 26.5(L) 27.0 - 32.0 pcg LAB HEMETOLOGY METHOD 06/16/2024 6:49 PM EDT [facility] MCHC 30.4(L) 32.0 - 37.0 g/dL LAB HEMETOLOGY METHOD 06/16[facility]2024 6:[facility] RDW 13.7 11.0 - 15.0 % LAB HEMETOLOGY METHOD 06/16/2024 6:49 PM [facility] Platelets 357 130 - 400 K/mcL LAB HEMETOLOGY METHOD 06/16/2024 6:49 PM [facility] MPV 9.4 7.0 - 11.0 FL LAB HEMETOLOGY METHOD 06/16/2024 6:49 PM [facility] NRBC 0.0 <1.0 % LAB HEMETOLOGY METHOD 06/16/2024 6:49 PM [facility] NRBC Absolute 0.00 <0.10 K/mcL LAB HEMETOLOGY METHOD 06/16/2024 6:49 PM [facility] Neutrophils Relative 60.7 % LAB HEMETOLOGY METHOD 06/16/2024 6:49 PM [facility] Lymphocytes Relative 30.2 % LAB HEMETOLOGY METHOD 06/16/2024 6:49 PM [facility] Monocytes Relative 7.5 % LAB HEMETOLOGY METHOD 06/16/2024 6:49 PM [facility] Eosinophils Relative 0.7 % LAB HEMETOLOGY METHOD 06/16/2024 6:49 PM [facility] Basophils Relative 0.5 % LAB HEMETOLOGY METHOD 06/16/2024 6:49 PM [facility] Immature Granulocytes Relative 0.4 % LAB HEMETOLOGY METHOD 06/16/2024 6:49 PM [facility] Neutrophils Absolute 3.33 1.50 - 7.00 K/mcL LAB HEMETOLOGY METHOD 06/16/2024 6:49 PM [facility] Lymphocytes Absolute 1.66 1.00 - 5.00 K/mcL LAB HEMETOLOGY METHOD 06/16/2024 6:49 PM EDT [facility] Monocytes Absolute 0.41 0.20 - 1.00 K/[facility] LAB HEMETOLOGY METHOD 06/16/2024 6:49 PM EDT [facility] Eosinophils Absolute 0.04 0.00 - 0.50 K/[facility] LAB HEMETOLOGY METHOD 06/16/2024 6:49 PM EDT [facility] Basophils Absolute 0.03 0.00 - 0.20 K/[facility] LAB HEMETOLOGY METHOD 06/16/2024 6:49 PM EDT [facility] Immature Granulocytes Absolute 0.02 0.00 - 0.03 K/[facility] LAB HEMETOLOGY METHOD 06/16/2024 6:49 PM EDT [facility] Blood Venous blood specimen / Unknown Venipuncture / Unknown 06/16/2024 5:28 PM EDT 06/16/2024 6:39 PM EDT Suman Botello MD LAB BLOOD ORDERABLES Final Result [facility] [address] [place] [address], [place] [phone] * Ammonia (06/16/2024 5:28 PM EDT) Ammonia 27 11 - 35 mcmol/L LAB CHEMISTRY METHOD 06/16/2024 6:55 PM EDT [facility] Blood Venous blood specimen / Unknown Venipuncture / Unknown 06/16/2024 5:28 PM EDT 06/16/2024 6:37 PM EDT Suman Botello MD LAB BLOOD ORDERABLES Final Result [facility] [address] [place] [address], [place] [phone] * (ABNORMAL) Comprehensive metabolic panel (06/16/2024 5:28 PM EDT) Sodium 141 133 - 145 mmol/L LAB CHEMISTRY METHOD 06/16/2024 7:37 PM [facility] Potassium 3.4(L) 3.5 - 5.5 mmol/L LAB CHEMISTRY METHOD 06/16/2024 7:37 PM [facility] Chloride 106 96 - 110 mmol/L LAB CHEMISTRY METHOD 06/16/2024 7:37 PM [facility] CO2 30 21 - 32 mmol/L LAB CHEMISTRY METHOD 06/16/2024 7:37 PM [facility] Anion Gap 5 3 - 11 LAB CHEMISTRY METHOD 06/16/2024 7:37 PM [facility] Glucose 108(H) 70 - 100 mg/dL LAB CHEMISTRY METHOD 06/16/2024 7:37 PM [facility] BUN 16 5 - 25 mg/dL LAB CHEMISTRY METHOD 06/16/2024 7:37 PM [facility] Creatinine 0.60 0.50 - 1.10 mg/dL LAB CHEMISTRY METHOD 06/16/2024 7:37 PM [facility] eGFR 101 >=60 mL/min/1. 73m2 LAB CHEMISTRY METHOD 06/16/2024 7:37 PM [facility] Comment:Calculation based on the??Chronic Kidney Disease Epidemiology Collaboration (CKD-EPI) equation refit??without adjustment for race. BUN/Creatinine Ratio 26.7 LAB CHEMISTRY METHOD 06/16/2024 7:37 PM [facility] Calcium 8.8 8.5 - 10.5 mg/dL LAB CHEMISTRY METHOD 06/16/2024 7:37 PM [facility] AST (SGOT) 14 10 - 42 unit/L LAB CHEMISTRY METHOD 06/16/2024 7:37 PM EDT [facility] ALT (SGPT) 18 10 - 60 unit/L LAB CHEMISTRY METHOD 06/16/2024 7:37 PM EDT [facility] Alkaline Phosphatase 88 42 - 121 unit/L LAB CHEMISTRY METHOD 06/16/2024 7:37 PM EDT [facility] Total Protein 6.8 6.0 - 8.0 g/dL LAB CHEMISTRY METHOD 06/16/2024 7:37 PM EDT [facility] Albumin 3.7 3.2 - 5.0 g/dL LAB CHEMISTRY METHOD 06/16/2024 7:37 PM EDT [facility] Total Bilirubin 0.3 0.0 - 1.4 mg/dL LAB CHEMISTRY METHOD 06/16/2024 7:37 PM EDT [facility] Blood Venous blood specimen / Unknown Venipuncture / Unknown 06/16/2024 5:28 PM EDT 06/16/2024 6:39 PM EDT us Suman Botello MD LAB BLOOD ORDERABLES Final Result [facility] [address] [place] [address], * ECG 12 lead (06/16/2024 5:19 PM EDT) Ventricular Rate ECG 79 BPM GEMUSE Atrial Rate 79 BPM GEMUSE P-R Interval 166 ms GEMUSE QRS Duration 94 ms GEMUSE Q-T Interval 388 ms GEMUSE QTc 444 ms GEMUSE P Wave Sikes 53 degrees GEMUSE R Sikes 2 degrees GEMUSE T Sikes 31 degrees GEMUSE ECG Interpretation Normal sinus rhythm When compared with ECG of 24-SEP-2023 14:20, No significant change was found Confirmed by DOROTHY WALKER ([id number]) on 06/16/2024 9:13:09 PM GEMUSE 06/16/2024 5:19 PM EDT 06/16/2024 9:13 PM EDT us Suman Botello MD ECG ORDERABLES Final Resul t GEMUSE documented in this encounter Visit Diagnoses Diagnosis Confusion, hx of, without neuro findings- Primary documented in this encounter Care Teams Cloth Coverer Relationship Specialty Start Date End Date Nesha Holloway MD [address] [place] [address] PCP - General 11/20/23 documented as of this encounter
--- OUTSIDE RECORDS SUMMARY | 2024-06-21 12:44 | XMS_ITS | Encounter Summary ---
Author Organization [employer] Address [address] [place] [address] 7[address] [place] [address] Care Team Providers Care High School Director Name Role Phone Tran Rogers MD Primary Care Provider [phone] Encounter Details Date Type Department Care Team (Latest Contact Info) Description 06/21/2024 Travel Social History Tobacco Use Types Packs/Day Years [...] Description 08/10/2024 11:00 AM EDT Clinical Support [facility] CHC MED & PEDS [address] [place] [address] Vesta Marcial, MANNIE [address] [place] [address] 08/23/2024 11:30 AM EDT Office Visit [facility] CHC MED & PEDS [address] [place] [address] Tran Rogers MD [address] [place] [address] documented as of this encounter Visit Diagnoses Not on filedocumented in this encounter Additional Health Concerns Assessment Noted Time PHQ-9 Depression Total Score: 11 024 10:16 AM EDT documented as of this encounter Care Teams High School Director Relationship Specialty Start Date End Date Tran Rogers MD [address] [place] [address] PCP - General Family Medicine 11/10/17 documented as of this encounter
--- OUTSIDE RECORDS SUMMARY | 2024-06-21 12:44 | XMS_ITS | Encounter Summary ---
Author Organization [employer] Address [address] [facility] [address], [place] [address] Care Team Providers Care Home Lending Officer Name Role Phone Tran Rogers MD Primary Care Provider [phone] Reason for Visit * Reason Onset Date Comments Med Refill 02/02/2023 Encounter Details Date Type Department Care Team (Late st Contact Info) Description 02/02/2023 Telephone [facility] MEDICINE [address] [place] [address] Tran Rogers MD [address] [place] [address] Med Refill Social History Tobacco Use Types Packs/Day Years [...] encounter Miscellaneous Notes * Telephone Encounter - Daysi Aleman - 02/02/2023 10:35 AM EST Tc from pt requesting med refill on; Complex Vitamins (RA B-Complex with B-12) tablet documented in this encounter Plan of Treatment Upcoming Encounters Date Type Department Care Team ([facility] st Contact Info) Description 08/10/2024 11:00 AM EDT Clinical Support [facility] MED & PEDS [address] [place] [address] Vesta Marcial, MANNIE [address] [place] [address] 08/23/2024 11:30 AM EDT Office Visit [facility] MED & PEDS [address] [place] [address] Tran Rogers MD [address] [place] [address] documented as of this encounter Visit Diagnoses Not on filedocumented in this encounter Care Teams Home Lending Officer Relationship Specialty Start Date End Date Tran Rogers MD [address] [place] [address] PCP - General Family Medicine 11/10/17 documented as of this encounter
--- OUTSIDE RECORDS SUMMARY | 2024-06-21 12:44 | XMS_ITS | Encounter Summary ---
Author Organization [employer] Address [address] [place] [address] [place], [place] [address] Care Team Providers Care Sign Carpenter Name Role Phone Tran Rogers MD Primary Care Provider [phone] Reason for Visit * Reason Onset Date Comments Nurse Triage 05/20/2023 Encounter Details Date Type Department Care Team ([facility] st Contact Info) Description 05/20/2023 Telephone [facility] CHC MED & PEDS [address] [place], [place] [id number] Tran Rogers MD [address] [place] [address] Nurse Triage Social History Tobacco Use Types [...] encounter Miscellaneous Notes * Telephone Encounter - Key Mcallister RN - 05/20/2023 12:51 PM EST Triage call [place] [id number] Pt reports dizziness, weakness, trouble walking. Pt reports this all started when Pt had a hysterectomy 04/13/23. Since then this dizziness comes and goes, Pt has to sit down when this happens to be able to obtain balance to walk. Pt reports drinking adequate liquids. Pt agrees with this disposition, home care is reviewed and fall risk reviewed. Pt given apt in [facility] 05/21/23 @ 140pm. Insurance is verified as active prior to booking. Protocol Used: Dizziness (Adult) Protocol-Based Disposition: See in Office or Video Visit within 3 Days Positive Triage Question: * Mild dizziness (e.g., walking normally) and has NOT been evaluated by physician for this (Exception: Dizziness caused by heat exposure, sudden standing, or poor fluid intake.) * All higher-acuity triage questions were negative Care Advice Discussed: * Reassurance and Education - Dizziness From Not Drinking Enough Liquids * Drink Fluids * Lie Down and Rest * Cool Off * Prevention - Dizziness * Reasons To Call Back - After 2 hours of rest and fluids And still feeling dizzy. - Passes out (faints). - You become worse. * Telephone Encounter - Julianne Ku - 05/20/2023 12:02 PM EST Symptoms: Dizziness, Weakness Outcome: Talk to a nurse or provider within 15 minutes Reason: Trouble walking The caller accepted this outcome Please contact pt at [phone] (Latvian) documented in this encounter Plan of Treatment Upcoming Encounters Date Type Department Care Team ([facility] st Contact Info) Description 08/10/2024 11:00 AM EDT Clinical Support [facility] MED & PEDS [address] [place] [address] Vesta Marcial, MANNIE [address] [place] [address] 08/23/2024 11:30 AM EDT Office Visit [facility] MED & PEDS [address] [place] [address] Tran Rogers MD [address] [place] [address] documented as of this encounter Visit Diagnoses Not on filedocumented in this encounter Care Teams Sign Carpenter Relationship Specialty Start Date End Date Tran Rogers MD [address] [place] [address] PCP - General Family Medicine 11/10/17 documented as of this encounter
--- OUTSIDE RECORDS SUMMARY | 2024-06-21 12:44 | XMS_ITS | Encounter Summary ---
Author Organization [employer] Address [address] [place] [address] 7 [place] [address] Care Team Providers Care Project Lead Name Role Phone Tran Rogers MD Primary Care Provider [phone] Reason for Visit * Reason Onset Date Comments Reschedule 08/28/2023 Encounter Details Date Type Department Care Team (Late st Contact Info) Description 08/28/2023 Telephone [facility] MEDICINE [address] [place] [address] Tran Rogers MD [address] [place] [address] Reschedule Social History Tobacco Use Types Packs/Day Years [...] * Telephone Encounter - Daysi Aleman - 08/28/2023 8:57 AM EDT Tc from pt requesting r/s REGIONAL ADMINISTRATIVE ASSISTANT appt documented in this encounter Plan of Treatment Upcoming Encounters Date Type Department Care Team (Late st Contact Info) Description 08/10/2024 11:00 AM EDT Clinical Support [facility] MED & PEDS [address] [place] [address] Vesta Marcial, MANNIE [address] [place] [address] 08/23/2024 11:30 AM EDT Office Visit [facility] MED & PEDS [address] [place] [address] Tran Rogers MD [address] [place] [address] documented as of this encounter Visit Diagnoses Not on filedocumented in this encounter Additional Health Concerns Assessment Noted Time PHQ-9 Depression Total Score: 11 024 10:16 AM EDT documented as of this encounter Care Teams Project Lead Relationship Specialty Start Date End Date Tran Rogers MD [address] [place] [address] PCP - General Family Medicine 11/10/17 documented as of this encounter
--- OUTSIDE RECORDS SUMMARY | 2024-06-21 12:44 | XMS_ITS | Encounter Summary ---
Author Organization [employer] Address [address] [place] [address] Care Team Providers Care Well Cleaner Name Role Phone Tran Rogers MD Primary Care Provider [phone] Reason for Visit * Reason Onset Date Comments Chart Prep 06/20/2024 Encounter Details Date Type Department Care Team ([facility] st Contact Info) Description 06/20/2024 Telephone [facility] CHC MED & PEDS [address] [place], [place] [phone] Tran Rogers MD [address] [place] [address] Chart Prep Social History Tobacco Use Types Packs/Day Years [...] encounter Miscellaneous Notes * Telephone Encounter - Giana Weaver MA - 06/20/2024 10:40 AM EDT Chart Prep Labs: done Images: done Vaccines due: yes Referrals: complete Screenings: colonoscopy Overdue care gaps: Sbirt, SDOH, PHQ-9, Oral Health, Disability documented in this encounter Plan of Treatment Upcoming Encounters Date Type Department Care Team (Late st Contact Info) Description 08/10/2024 11:00 AM EDT Clinical Support [facility] MED & PEDS [address] [place] [address] Vesta Marcial RN [address] [place] [address] 08/23/2024 11:30 AM EDT Office Visit [facility] MED & PEDS [address] [place] [address] Tran Rogers MD [address] [place] [address] documented as of this encounter Visit Diagnoses Not on filedocumented in this encounter Additional Health Concerns Assessment Noted Time PHQ-9 Depression Total Score: 11 07/13/ 024 10:16 AM EDT documented as of this encounter Care Teams Well Cleaner Relationship Specialty Start Date End Date Tran Rogers MD [address] [place] [address] PCP - General Family Medicine 11/10/17 documented as of this encounter
--- OUTSIDE RECORDS SUMMARY | 2024-06-21 12:44 | XMS_ITS | Encounter Summary ---
Author Organization [employer] Address [address] [facility] 7 [place] [address] Care Team Providers Care New Vehicle Sales Consultant Name Role Phone Tran Rogers MD Primary Care Provider [phone] Reason for Visit * Reason Onset Date Comments Durable Medical Equipment 02/02/2023 Encounter Details Date Type Department Care Team (Late st Contact Info) Description 02/02/2023 Telephone [facility] MEDICINE [address] [place] [address] Tran Rogers MD [address] [place] [address] Durable Medical Equipment Social History Tobacco Use Types Packs/Day Years [...] encounter Miscellaneous Notes * Telephone Encounter - Rosemary Avila LPN - 03/11/2023 11:15 AM EST Message below notes resume writer returned call inform pt to call L&C for update , * Telephone Encounter - Odilon Chow - 03/11/2023 10:05 AM EST Tc from pt requesting status on ensures. Please contact pt @ [phone] * Telephone Encounter - Rosemary Avila LPN - 02/02/2023 1:15 PM EST Message below noted , however pt has an active RX for boost with l&C boost with high protein itis on back order resume writer did inform pt , showed understanding stated will continue to wait . Just anFYI * Telephone Encounter - Daysi Aleman - 02/02/2023 10:36 AM EST Tc from pt requesting script for Ensure drinks. documented in this encounter Plan of Treatment Upcoming Encounters Date Type Department Care Team (Late st Contact Info) Description 08/10/2024 11:00 AM EDT Clinical Support [facility] MED & PEDS [address] [place] [address] Vesta Marcial RN [address] [place] [address] 08/23/2024 11:30 AM EDT Office Visit [facility] MED & PEDS [address] [place] [address] Tran Rogers MD [address] [place] [address] documented as of this encounter Visit Diagnoses Not on filedocumented in this encounter Care Teams New Vehicle Sales Consultant Relationship Specialty Start Date End Date Tran Rogers MD [address] [place] [address] PCP - General Family Medicine 11/10/17 documented as of this encounter
--- OUTSIDE RECORDS SUMMARY | 2024-06-21 12:44 | XMS_ITS | Encounter Summary ---
Author Organization [employer] Address [address] [place] [address] 7 [place] [address] Care Team Providers Care Automobile Damage Field Appraiser Name Role Phone Tran Rogers MD Primary Care Provider Encounter Details Date Type Department Care Team ([facility] Contact Info) Description 01/27/2023 Abstract [facility] MEDICINE [address] [place] [address] Tran Rogers MD [address] [place] [address] Social History Tobacco Use Types Packs/Day Years [...] Upcoming Encounters Date Type Department Care Team ([facility] Contact Info) Description 08/10/2024 11:00 AM EDT Clinical Support [facility] CHC MED & PEDS [address] [place] [address] McMVesta lira RN [address] [place] [address] 08/23/2024 11:30 AM EDT Office Visit [facility] CHC MED & PEDS [address] [place] [address] Tran Rogers MD [address] [place] [address] documented as of this encounter Visit Diagnoses Not on filedocumented in this encounter Care Teams Automobile Damage Field Appraiser Relationship Specialty Start Date End Date Tran Rogers MD [address] [place] [address] PCP - General Family Medicine 11/10/17 documented as of this encounter
[2024-06-21 15:58] LABS: Lithium < 0.10 mmol/L (0.60-1.20)
[2024-06-21 17:23] LABS: Anion Gap 11 (12-20); Blood Urea Nitrogen 20 mg/dL (9-16); Calcium 9.6 mg/dL (8.4-10.2); Carbon Dioxide 30 mmol/L (22-29); Chloride 106 mmol/L (96-108); Estimated Glomerular Filt Rate > 60; Glucose Random 126 mg/dL (60-115); Potassium 3.5 mmol/L (3.3-5.1); Sodium 143 mmol/L (135-145)
[2024-06-21 17:43] LABS: TSH reflex Free T4 0.36 uIU/mL (0.32-4.0)
[2024-06-21 17:54] LABS: Folate 9.7 ng/mL (> or = 4.0); Vitamin B12 1757 pg/mL (200-900)
[2024-06-22 08:41] LABS: Syphilis Screen Nonreactive (Nonreactive)
== END 2024-06-21 10:41 | disposition home or self-care (01) ==
LOC: HO.CHCLDS 10:40
PROVIDERS: Visit Provider Pediatrics
DX: R41.0 Disorientation, unspecified (principal)
CPT/HCPCS: 36415; 80048; 80178; 82607; 82746; 84443; 86780

== ENCOUNTER 2025-03-22 11:32 | Outpatient (REF) | payer OTHER, SELFPAY ==
--- OUTSIDE RECORDS SUMMARY | 2024-01-05 04:53 | XMS_ITS | Encounter Summary ---
Author Organization [facility] Address [address] [place] [address] Care Team Providers Care Supervisor Mold Yard Name Role Phone Nesha Holloway MD Primary Care Provider [phone] Encounter Details Date Type Department Care Team (Late st Contact Info) Description 01/05/2024 5:53 AM EDT Hospital Encounter TH HISTORIC ENCOUNTERS EASTERN CONVERSION ONLY Mila Kong MD [address] [place] [address] Social History Tobacco Use Types Packs/Day Years Used Date Smoking Tobacco: Light Smoker Smokeless Tobacco: Never Alcohol Use Standard Drinks/Week Comments Yes 0 (1 standard drink = 0.6 oz pur e alcohol) Comments Unknown Sex and Gender Information Value Date Recorded Sex Assigned at Female 06/16/2024 8:16 PM EDT Legal Sex Female 11:13 PM EST Gender Identity Female 06/16/2024 8:16 PM EDT Sexual Orientation Straight 06/16/2024 8: 16 PM EDT documented as of this encounter Procedure Notes * Mila Kong MD - 01/05/2024 9:37 AM EDT Type of Surgery Surgery Performed: Other Operative Note Date of Surgery: Jan 05, 2024 Operation Panniculectomy Indication for Surgery Pt presents after massive weight loss with excess abdominal skin Consent Informed Consent was obtained for this operation. I have explained the nature, purpose and benefits of the operation. I have discussed the risks and benefit of the operation including possible complications or adverse events with patient/family. Alternative(s) were discussed with the patient with their relative benefits and risks as well as the consequences of not accepting the operation were included in obtaining consent. Preoperative Diagnosis Excess abdominal skin Surgeon Jaclyn Plant Protection Supervisor(s) Sakshi Description of Procedure Pt was placed supine on the OR table. After general anesthesia, pt's abdomen was prepped with chlorhexiprep and draped sterilely. 0.25% Marcaine with epi was used to infiltrate the skin. A curvilinear incision was made through the skin, subcutaneous fat, kael's layer to anterior abdominal wall. Hemostasis was obtained with electrocautery and 3-0 vicryl ties. Two triangular wedges of excess skin and fat were excised from below the umbilicus. This weighed 932 gms. An incision was made around the umbilicus and it was left as a stalk to the anterior abdominal wall. A tunnel was created to allow for repositioning of the umbilicus. The new location for the umbilicus was determined in the midline. The skin was excised and area defatted. The umbilicus was secured with 3-0 monocryl, followed by a running 4-0 monocryl. The abdomen was irrigated and checked for hemostasis prior to closure. Two 7mm HARVINDER bulbs were placed and secured at the ends of the incision with 3-0 Nylon. The abdominal wall was closed in layers with 2-0 vicryl for kael's layer. 3-0 monocryl for the deep dermis and a running 4-0 monocryl for the subcuticular layer. Dermabond, gauze and an abdominal binder were placed. Findings excess skin and fat Anesthesia GET Fluids crystalloid Estimated Blood Loss (ml): 25 Drains 7 mm HARVINDER x 2 Specimens pannus 465 & 467 gm Complications none Postoperative Plan Disposition good Postoperative Plan discharge home MILA KONG MD Jan 05, 2024 09:37 documented in this encounter Plan of Treatment Not on file documented as of this encounter Visit Diagnoses Not on filedocumented in this encounter Care Teams Supervisor Mold Yard Relationship Specialty Start Date End Date Nesha Holloway MD [address] [place] [id number] (Work) PCP - General 11/20/23 documented as of this encounter
--- OUTSIDE RECORDS SUMMARY | 2025-03-22 13:17 | XMS_ITS | Encounter Summary ---
Author Organization [employer] Address [address] [place] [address] Care Team Providers Care Rn Ostomy Name Role Phone Tran Rogers MD Primary Care Provider [phone] Reason for Visit * Reason Onset Date Comments Med Refill 07/05/2024 Encounter Details Date Type Department Care Team (Late st Contact Info) Description 07/05/2024 Telephone [facility] MEDICINE [address] [place] [address] Tran Rogers MD [address] [place] [address] Med Refill Social History Tobacco Use Types [...] encounter Miscellaneous Notes * Telephone Encounter - Sherie Gallegos Albert - 07/05/2024 1:31 PM EDT TC from pt requesting medication refill. Medications needing refill : traMADol (Ultram) 50 MG tablet To be sent to: [id number] - [place], [place] - [address] documented in this encounter Plan of Treatment Upcoming Encounters Date Type Department Care Team (Late st Contact Info) Description 06/08/2025 10:00 AM EDT Clinical Support [facility] MED & PEDS [address] [place] [address] Vesta Marcial RN [address] [place] [address] documented as of this encounter Visit Diagnoses Not on filedocumented in this encounter Additional Health Concerns Assessment Noted Time PHQ-9 Depression Total Score: 11 07/13/ 024 10:16 AM EDT documented as of this encounter Care Teams Rn Ostomy Relationship Specialty Start Date End Date Tran Rogers MD [address] [place] [address] PCP - General Family Medicine 11/10/17 documented as of this encounter
--- OUTSIDE RECORDS SUMMARY | 2025-03-22 13:17 | XMS_ITS | Encounter Summary ---
Author Organization [employer] Address [address] [place] [address] Care Team Providers Care Straight Line Press Setter Name Role Phone Tran Rogers MD Primary Care Provider [phone] Reason for Visit * Reason Onset Date Comments Nurse Triage 05/20/2023 Encounter Details Date Type Department Care Team ([facility] st Contact Info) Description 05/20/2023 Telephone [facility] CHC MED & PEDS [address] [place], [place] [phone] Tran Rogers MD [address] [place] [address] Nurse Triage Social History Tobacco Use Types [...] 05/20/2023 12:51 PM EST Triage call with [facility] Nurse Practitioner ID [id number] Pt reports dizziness, weakness, trouble walking. Pt reports this all started when Pt had a hysterectomy 04/13/23. Since then this dizziness comes and goes, Pt has to sit down when this happens to be able to obtain balance to walk. Pt reports drinking adequate liquids. Pt agrees with this disposition, home care is reviewed and fall risk reviewed. Pt given apt in [facility] 05/21/23 @ 140pm. Insurance is verified as [...] accepted this outcome Please contact pt at [phone] (Mongolian) documented in this encounter Plan of Treatment Upcoming Encounters Date Type Department Care Team (Late st Contact Info) Description 06/08/2025 10:00 AM EDT Clinical Support [facility] MED & PEDS [address] [place] [address] Vesta Marcial, MANNIE [address] [place] [address] documented as of this encounter Visit Diagnoses Not on filedocumented in this encounter Care Teams Straight Line Press Setter Relationship Specialty Start Date End Date Tran Rogers MD [address] [place] [address] PCP - General Family Medicine 11/10/17 documented as of this encounter
--- OUTSIDE RECORDS SUMMARY | 2025-03-22 13:17 | XMS_ITS | Encounter Summary ---
Author Organization [employer] Address [address] [place] [address] [address], [place] [address] Care Team Providers Care Universal Grinder Operator Name Role Phone Tran Rogers MD Primary Care Provider Reason for Visit * Reason Onset Date Comments Reschedule 08/28/2023 Encounter Details Date Type Department Care Team (Late st Contact Info) Description 08/28/2023 Telephone [facility] MEDICINE [address] [place] [address] Tran Rogers MD [address] [place] [address] Reschedule Social History Tobacco Use Types Packs/Day [...] AM EDT Tc from pt requesting r/s INDUSTRIAL TRAINER appt documented in this encounter Plan of Treatment Upcoming Encounters Date Type Department Care Team (Late st Contact Info) Description 06/08/2025 10:00 AM EDT Clinical Support [facility] MED & PEDS [address] [place] [address] Vesta Marcial, RN [address] [place] [address] documented as of this encounter Visit Diagnoses Not on filedocumented in this encounter Additional Health Concerns Assessment Noted Time PHQ-9 Depression Total Score: 11 07/13/ 024 10:16 AM EDT documented as of this encounter Care Teams Universal Grinder Operator Relationship Specialty Start Date End Date Tran Rogers MD [address] [place] [address] PCP - General Family Medicine 11/10/17 documented as of this encounter
--- OUTSIDE RECORDS SUMMARY | 2025-03-22 13:17 | XMS_ITS | Encounter Summary ---
Author Organization [employer] Address [address] [facility] 7 [place] [address] Care Team Providers Care Pattern Shop Supervisor Name Role Phone Tran Rogers MD Primary Care Provider [phone] Reason for Visit * Reason Comments Med Refill Encounter Details Date Type Department Care Team ([facility] st Contact Info) Description 11/25/2024 Refill [facility] MEDICINE [address] [place] [address] Tran Rogers MD [address] [place] [address] Social History Tobacco Use Types Packs/Day Years [...] Questionnaire Data Not on file 0 07/14/2023 Housing Stability Answer Date Recorded What is your housing situation today? I have karen denise 08/10/[address] you li ve. Do you have problems with any of the following? Not on file 08/10/2024 Food Insecurity Answer Date Recorded Within the past 12 months, y ou worried that your food would run out before you got money to buy more: Never True 08/10/2024 Within the past 12 months,th e food you bought just didn't last and you didn't have enough money to get more: Never True Transportation Answer Date Recorded In the past 12 months, has l ack of transportation kept you from medical appts, meetings, work or from getting things needed for daily living? No 08/10/2024 Utilities Answer Date Recorded In the past 12 months, has t he electric, gas, oil or water company threatened to shut off services in your home? No 08/10/2024 Depression Answer Date Recorded Patient Health Questionnaire-2 Score 2 07/14/2023 Internet Access Answer Date Recorded Internet Access Q1 Yes 08/10/2024 Internet Access Q2 Not on file 08/10/2024 Comments Unknown Sex and Gender Information Value [...] Description 06/08/2025 10:00 AM EDT Clinical Support [facility] CHC MED & PEDS [address] [place] [address] Vesta Marcial, MANNIE [address] [place] [address] documented as of this encounter Visit Diagnoses Not on filedocumented in this encounter Additional Health Concerns Assessment Noted Time PHQ-9 Depression Total Score: 11 024 10:16 AM EDT documented as of this encounter Care Teams Pattern Shop Supervisor Relationship Specialty Start Date End Date Tran Rogers MD [address] [place] [address] PCP - General Family Medicine 11/10/17 documented as of this encounter
--- OUTSIDE RECORDS SUMMARY | 2025-03-22 13:17 | XMS_ITS | Encounter Summary ---
Author Organization [employer] Address [address] [facility] 7t [place] [address] Care Team Providers Care Microgrinder Operator Name Role Phone Tran Rogers MD Primary Care Provider [phone] Reason for Visit * Reason Comments Med Refill Encounter Details Date Type Department Care Team ([facility] Contact Info) Description 10/24/2024 Refill [facility] [address] [place], [place] [id number] Jj Mullins MD 230 [place] [address] Social History Tobacco Use Types Packs/Day Years [...] Description 06/08/2025 10:00 AM EDT Clinical Support [facility]EDS [address] [place] [address] Vesta Marcial, MANNIE 505 [place] [address] documented as of this encounter Visit Diagnoses Not on filedocumented in this encounter Additional Health Concerns Assessment Noted Time PHQ-9 Depression Total Score: 11 024 10:16 AM EDT documented as of this encounter Care Teams Microgrinder Operator Relationship Specialty Start Date End Date Tran Rogers MD 505 [place] [address] PCP - General Family Medicine 11/10/17 documented as of this encounter
--- OUTSIDE RECORDS SUMMARY | 2025-03-22 13:17 | XMS_ITS | Encounter Summary ---
Author Organization [employer] Address [address] [facility] [address], [place] [address] Care Team Providers Care Parts Chaser Name Role Phone Tran Rogers MD Primary Care Provider [phone] Reason for Visit * Reason Onset Date Comments Medication Question 11/10/2024 Encounter Details Date Type Department Care Team ([facility] st Contact Info) Description 11/10/2024 Telephone [facility] MED[facility] 230 [place] [address] Tran Rogers MD 505 [place] [address] Medication Question Social History Tobacco Use Types Packs/Day Years [...] encounter Miscellaneous Notes * Telephone Encounter - Esteban Farrukh - 11/10/2024 1:32 PM EDT TC from pt requesting a new script for Acid reflex medication . Pt reports last script sent did nothelp ( unable to determine name of medication ) documented in this encounter Plan of Treatment Upcoming Encounters Date Type Department Care Team ([facility] st Contact Info) Description 06/08/2025 10:00 AM EDT Clinical Support [facility] 505 [place] [address] Vesta Marcial, MANNIE 505 [place] [address] documented as of this encounter Visit Diagnoses Not on filedocumented in this encounter Additional Health Concerns Assessment Noted Time PHQ-9 Depression Total Score: 11 024 10:16 AM EDT documented as of this encounter Care Teams Parts Chaser Relationship Specialty Start Date End Date Tran Rogers MD [address] [place] [address] PCP - General Family Medicine 11/10/17 documented as of this encounter
--- OUTSIDE RECORDS SUMMARY | 2025-03-22 13:18 | XMS_ITS | Encounter Summary ---
Author Organization [employer] Address [address] [place] [address] [place], [place] [address] Care Team Providers Care Devil Dog Name Role Phone Tran Rogers MD Primary Care Provider [phone] Reason for Visit * Reason Onset Date Comments Appointment Request 01/13/2024 Encounter Details Date Type Department Care Team ([facility] st Contact Info) Description 01/13/2024 Telephone [facility] MED[facility]INE 230 [place] [address] Tran Rogers MD 505 [place] [address] Appointment Request Social History Tobacco Use Types [...] from pt requesting call back to reschedule CISCO ENGINEER visit. Please contact pt at [phone]. (Danish Speaker) documented in this encounter Plan of Treatment Upcoming Encounters Date Type Department Care Team (Late st Contact Info) Description 06/08/2025 10:00 AM EDT Clinical Support [facility] 505 [place] [address] Vesta Marcial, MANNIE 505 [place] [address] documented as of this encounter Visit Diagnoses Not on filedocumented in this encounter Additional Health Concerns Assessment Noted Time PHQ-9 Depression Total Score: 11 024 10:16 AM EDT documented as of this encounter Care Teams Devil Dog Relationship Specialty Start Date End Date Tran Rogers MD 505 [place] [address] PCP - General Family Medicine 11/10/17 documented as of this encounter
--- OUTSIDE RECORDS SUMMARY | 2025-03-22 13:18 | XMS_ITS | Encounter Summary ---
Author Organization [employer] Address [address] [facility] 7t [place] [address] Care Team Providers Care Food Critic Name Role Phone Tran Rogers MD Primary Care Provider [phone] Encounter Details Date Type Department Care Team (Late Contact Info) Description 06/17/2024 Orders Only [facility] CH[facility] MED & PEDS [address] [place] [address] ProviderSebastian MD Social History Tobacco Use Types Packs/Day Years [...] Department Care Team (Late Contact Info) Description 06/08/2025 10:00 AM EDT Clinical Support [facility] MED & PEDS [address] [place] [address] Vesta Marcial, RN 505 [place] [address] documented as of this encounter Procedures Procedure [...] documented as of this encounter Care Teams Food Critic Relationship Specialty Start Date End Date Tran Rogers MD 505 [place] [address] PCP - General Family Medicine 11/10/17 documented as of this encounter
--- OUTSIDE RECORDS SUMMARY | 2025-03-22 13:18 | XMS_ITS | Encounter Summary ---
Author Organization [employer] Address [address] [place] [address] [address], [place] [address] Care Team Providers Care Farmworker Fruit Name Role Phone Tran Rogers MD Primary Care Provider [phone] Encounter Details Date Type Department Care Team ([facility] Contact Info) Description 01/27/2023 Abstract [facility] MEDICINE 230 [place] [address] Tran Rogers MD 505 [place] [address] Social History Tobacco Use Types Packs/Day Years [...] Upcoming Encounters Date Type Department Care Team ([facility] Contact Info) Description 06/08/2025 10:00 AM EDT Clinical Support [facility] MED [facility] PEDS 505 [place] [address] Vesta Marcial, RN 505 [place] [address] documented as of this encounter Visit Diagnoses Not on filedocumented in this encounter Care Teams Farmworker Fruit Relationship Specialty Start Date End Date Tran Rogers MD 505 [place] [address] PCP - General Family Medicine 11/10/17 documented as of this encounter
--- OUTSIDE RECORDS SUMMARY | 2025-03-22 13:18 | XMS_ITS | Encounter Summary ---
Author Organization [employer] Address [address] [place] [address] 7t [place] [address] Care Team Providers Care Rope Cutter Name Role Phone Tran Rogers MD Primary Care Provider [phone] Reason for Visit * Reason Comments Med Refill Encounter Details Date Type Department Care Team ([facility] Contact Info) Description 03/14/2025 Refill [facility] MED [facility] PEDS 505 [place], [place] [phone] Alethea Roche FNP 505 [place] [address] Social History Tobacco Use Types Packs/Day Years [...] Answer Date Recorded Patient Health Questionnaire-9 Score 13 01/19/2025 Patient Health Questionnaire-9 Score 13 01/19/2025 Last PHQ-9: Questionnaire Data Not on file 1 Housing Stability Answer Date Recorded What is your housing situation today? I have karen denise 01/06/[address] you li ve. Do you have problems with any of the following? None of the above 01/06/2025 Food Insecurity Answer Date Recorded Within the [...] Answer Date Recorded Patient Health Questionnaire-2 Score 6 01/19/2025 Internet Access Answer Date Recorded Internet Access Q1 Yes 08/10/2024 Internet Access Q2 Not on file 08/10/2024 Comments No Sex and Gender Information Value Date Recorded Sex Assigned at Female 01/20/2022 10:30 AM EDT Legal Sex Female 10:30 AM EDT Gender Identity Female 01/20/2022 10:30 AM EDT Sexual Orientation Straight 01/20/2022 10 :30 AM EDT documented as of this encounter Plan of Treatment Upcoming Encounters Date Type Department Care Team (Late st Contact Info) Description 06/08/2025 10:00 AM EDT Clinical Support [facility] MED [facility] PEDS [address] [place] [address] Vesta Marcial RN 505 [place] [address] documented as of this encounter Visit Diagnoses Not on filedocumented in this encounter Additional Health Concerns Assessment Noted Time PHQ-9 Depression Total Score: 13 025 2:25 PM EDT documented as of this encounter Care Teams Rope Cutter Relationship Specialty Start Date End Date Tran Rogers MD 505 [place] [address] PCP - General Family Medicine 11/10/17 documented as of this encounter
--- OUTSIDE RECORDS SUMMARY | 2025-03-22 13:18 | XMS_ITS | Encounter Summary ---
Author Organization [employer] Address [address] [place] [address] 7 [place] [address] Care Team Providers Care Cleaning Specialist Name Role Phone Tran Rogers MD Primary Care Provider [phone] Encounter Details Date Type Department Care Team (Late Contact Info) Description 03/20/2023 Orders Only [facility] MED [facility] PEDS [address] [place] [address] Ozzy Foster MD 505 [place] [address] Social History Tobacco Use Types Packs/Day Years [...] Description 06/08/2025 10:00 AM EDT Clinical Support [facility] MED [facility] PEDS [address] [place] [address] Vesta Marcial RN 505 [place] [address] documented as of this encounter Procedures Procedure Name Priority Date/Time Associated Diagnosis Comments DRUG MONITOR, FENTANYL, W/CONF, URINE Routine 03/20/2023 2:22 PM EST documented in this encounter Results * Drug Monitoring, Fentanyl, with Confirmation, Urine (03/20/2023 2:22 PM EST) Fentanyl, Ur NEGATIVE [facility] Comment:REFERENCE RANGE: <0. 5 ng/mL Norfentanyl, Ur NEGATIVE [facility] Comment:REFERENCE RANGE: <0. 5 ng/mL Fentanyl Note SEE NOTE [facility] Comment:This drug testing is for medical treatment only.Analysis was performed as non-forensic testing andthese results should be used only by healthcareproviders to render diagnosis or treatment, or tomonitor progress of medical conditions.LDT Notes:Confirmation tests were developed and their analyticalperformance characteristics have been determined by[employer]. It has not been cleared or approvedby the FDA. This assay has been validated pursuant tothe CLIA regulations and is used for clinical purposes.Healthcare Providers needing Interpretation assistance,please contact us at [phone] ( )M-F, 8am to 10pm ESTTHIS TEST PERFORMED AT:[facility] [address] [phone] DIRECTOR: CLARE BILLY MD 03/20/2023 2:22 PM EST 03/20/2023 2:37 PM EST us Tran Rogers MD LAB URINE ORDERABLES Final Re sult [facility] [address] [place] [phone] documented in this encounter Visit Diagnoses Not on filedocumented in this encounter Care Teams Cleaning Specialist Relationship Specialty Start Date End Date Tran Rogers MD [address] [place] [address] PCP - General Family Medicine 11/10/17 documented as of this encounter
--- OUTSIDE RECORDS SUMMARY | 2025-03-22 13:18 | XMS_ITS | Encounter Summary ---
Author Organization [employer] Address [address] [facility] [address] [address] Care Team Providers Care Family Advocate Name Role Phone Tran Rogers MD Primary Care Provider Reason for Visit * Reason Onset Date Comments Med Refill 02/27/2025 Encounter Details Date Type Department Care Team (Late st Contact Info) Description 02/27/2025 Telephone [facility] MEDICINE [address] [place] [address] Tran Rogers MD 505 [place] [address] Med Refill Social History Tobacco Use Types [...] the past 12 months, has t he [employer], gas, oil or water company threatened to [...] * Telephone Encounter - Michael Weaver - 02/27/2025 1:50 PM EST TC from pt requesting medication refill. Medications needing refill: traMADol (Ultram) 50 MG tablet [id number] - [place], [place] - [address] [facility] [address] documented in this encounter Plan of Treatment Upcoming Encounters Date Type Department Care Team (Late st Contact Info) Description 06/08/2025 10:00 AM EDT Clinical Support [facility] MED & PEDS [address] [place] [address] Vesta Marcial, RN [address] [place] [address] documented as of this encounter Visit Diagnoses Not on filedocumented in this encounter Additional Health Concerns Assessment Noted Time PHQ-9 Depression Total Score: 13 025 2:25 PM EDT documented as of this encounter Care Teams Family Advocate Relationship Specialty Start Date End Date Tran Rogers MD [address] [place] [address] PCP - General Family Medicine 11/10/17 documented as of this encounter
--- OUTSIDE RECORDS SUMMARY | 2025-03-22 13:18 | XMS_ITS | Data Portability ---
Author Organization [employer] [facility], [facility] Address [address] [place] [address] Care Team Providers Care Orthotic Fitter Name Role Phone Unavailable Referring Provider HIM CCA OTHER Assessment Encounter Date Assessment Date Assessment LastModified by Organization Details LastModified Time 06/04/2023 06/04/2023 As noted, we were called to see this patient regarding concerns of headache. Patient states she has a long standing history of migraine headaches and that today's headache is identical but less severe than prior headaches. She used sumatriptan yesterday and tylenol yesterday which provided some relief but headache persists. Told not to use ibuprofen 2/2 stomach issues. States that headaches have persisted since she underwent some kind of ovary/uterus surgery a few weeks ago. No f/c. No URI sxs. No neck pain or stiffness. No n/v. No vision loss. No speech changes. No ext weakness. No vertigo. No trouble walking. Taking POs. No cp. No sob. No abd pain. She does endorse light sensitivity which is present when she gets migraines. Evaluation in the field was performed by my hcc coders colleague, as noted above, I provided real-time direction and supervision for this visit. Vitals reviewed The medic evaluation revealed: no distress +photophobia neck supple nc/at no facial droop; speech coherent; no pronator drifts; nl gait lungs clear rrr abd soft, nt delgadillo Impression: Headache, seems most consistent with recurrent migraine per patient report Lower clinical suspicion for secondary etiology such as SAH, CVA/TIA, GCA, meningitis Nonfocal neuro exam and no infectious sxs Plan: Do not feel she is in need of STAT neuroimaging or labs Proceeded with migraine headache cocktail of toradol, reglan and NS IV with great improvement She reports sxs resolved Red flag s/s reviewed for re-evaluation, including severe headache, fevers, vomiting, new yessi sxs Primary care, consider re-evaluation in office/teleheal th visit Disposition: We discussed the diagnostic uncertainty of home visits and the risk associated with this. In this case, the patient and I felt this to be an acceptable and reasonable amount of risk given the benefit of avoiding an ED visit. We discussed the need to seek care urgently/emerge ntly in the setting of any new or worsening serious symptoms, particularly severe headache, vomiting, fevers, new neurological symptoms, abdominal pain, other concerns [email or web address] Not available 06/04/2023 13:32:04 06/02/2024 06/02/2024 I have reviewed and agree with the Assessment and Plan as documented by the Reed Fixer. I provided real-time medical direction via phone for this encounter, and was available for additional phone based assistance as needed. I would add/emphasize: Pt seen for sxs of mild erythema periorbitally. AVSS and well appearing per report. Temp 99.1 but no subjective fevers/chills and not truly febrile per temp. Mildly puritic erythema but no pain. No ocular or mucosal involvement per report. nO change in vision. No changes in medications, cleansers or cosmetic products. Pt wondering if her makeup might be causing this (noted to be wearing significant makeup). No hx of this prior. No other sxs of autoimmune disease per report. Low suspicion for overt cellulitis given lack of reported induration/warm th on exam and from review of clinical images. Maybe localized contact dermatitis. Advised trial of forgoing cosmetics. gentle cleasing w/ soap and water and monitoring over the weekend. Advised PCP follow up on Thursday w/ ED presentation if worsening over the weekened or involving mucosal surfaces. Entirety of visit conducted w/ aid of External Grinder. pallfather Not available 06/02/2024 21:58:21 Plan of Treatment Reminders Order Date Submit Date Provider Last Modified By Organization Details Last Modified Time Details Appointments None recorded. Lab None recorded. Referral None recorded. Procedures None recorded. Surgeries None recorded. Imaging None recorded. Medication Orders ketorolac 15 mg/mL injection solution 2023 024 [email or web address] Not available 13:32:14 metoclopram pito 10 mg tablet 2023 024 [email or web address] Not available 4 13:32:30 Patient TargetsNo targets recorded. Patient Instructions Encounter Date Encounter Id Patient Instructions Last Modified By Organization Details Last Modified Time 06/04/2023 infusion, normal saline* - 1L NS IV CHRISTI Not available 06/05/2024 05:01:14 Reason for Referral None Reported. Medical Equipment None Reported. Allergies Allergen ID Allergen Name Allergen Category Reaction Reaction Severity Criticality Documentation Date Start Date Code Code System Note Provider Name and Address Organization Details Recorded Time 44219 Product containin g penicilli n (product) medicatio n Not available Not available Not available 06/02/2024 50977 [id number] SNOMED Not Available [employer] - production 5 13:34:06 Medications Name Sig Start Date Stop Date Status Note LastModified by Organization Details LastModified Time multivitamin tablet TAKE 1 TABLET BY MOUTH EVERY MORNING active Not Available Not Available No t Available celecoxib 200 mg capsule active Not Available Not Available Not Available ketorolac 15 mg/mL injection solution 15 mg iv x 1 2023 active Not Available Not Available Not Avai lable doxycycline hyclate 100 mg capsule TAKE 1 CAPSULE BY MOUTH DAILY FOR 7 DAYS. START TAKING DAILY 7 DAYS BEFORE SURGERY active Not Available Not Available No t Available ibuprofen 800 mg tablet TAKE 1 TABLET BY MOUTH EVERY EIGHT HOURS NEEDED active Not Available Not Available No t Available tizanidine 4 mg tablet TAKE 1 TABLET BY MOUTH EVERY NIGHT AT BEDTIME NEEDED active Not Available Not Available No t Available sulfamethoxa zole 400 mg-trimethop rim 80 mg tablet TAKE 1 TABLET BY MOUTH TWICE DAILY 7 DAYS active Not Available Not Available No t Available doxepin 25 mg capsule TAKE 1 TO 2 CAPSULES BY MOUTH AT BEDTIME active Not Available Not Available No t Available sumatriptan 100 mg tablet TAKE 1 TABLET BY MOUTH 1 TIME NEEDED FOR MIGRAINE HEADACHE. MAY REPEAT DOSE IN 2 HOURS NEEDED active Not Available Not Available No t Available senna 8.6 mg tablet TAKE 2 TABLETS BY MOUTH DAILY AT BEDTIME NEEDED FOR CONSTIPATIO N active Not Available Not Available No t Available alendronate 70 mg tablet active Not Available Not Available Not Available doxepin 75 mg capsule TAKE 1 TO 2 CAPSULES BY MOUTH AT BEDTIME active Not Available Not Available No t Available sumatriptan 50 mg tablet TAKE 1 TABLET BY MOUTH 1 TIME NEEDED FOR MIGRAINE HEADACHE TAKE AT ONSET OF BAD MIGRAINE. NOREFILLS IN UNDER 30 DAYS active Not Available Not Available No t Available cyanocobalam in (vit B-12) 1,000 mcg tablet TAKE 1 TABLET BY MOUTH EVERY DAY active Not Available Not Available No t Available metronidazol e 500 mg tablet TAKE 1 TABLET BY MOUTH EVERY 12 HOURS FOR 5 DAYS active Not Available Not Available N ot Available tramadol 50 mg tablet active Not Available Not Available No t Available acetaminophe n 500 mg tablet TRK 2 TABLETS BY MOUTH EVERY 6 HOURS active Not Available Not Available No t Available lidocaine-pr ilocaine 2.5 %-2.5 % topical cream APPLY TOPICALLY TO THE AFFECTED AREA 1 TIME FOR UP TO 1 DOSE NEEDED FOR MILD PAIN active Not Available Not Available No t Available pantoprazole 20 mg tablet,delay ed release TAKE 1 TABLET BY MOUTH TWICE DAILY active Not Available Not Available No t Available oxycodone-ac etaminophen 5 mg-325 mg tablet TAKE 1 TABLET BY MOUTH EVERY 4 TO 6 HOURS NEEDED FOR PAIN active Not Available Not Available No t Available lorazepam 0.5 mg tablet TAKE 1 TABLET AT BEDTIME AND 1 TABLET 1 HOUR PRIOR TO PROCEDURE active Not Available Not Available No t Available lithium carbonate 300 mg capsule TAKE ONE CAPSULE BY MOUTH EVERY MORNING AND 2 CAPSULES EVERY NIGHT AT BEDTIME active Not Available Not Available N ot Available polymyxin B sulfate 10,000 unit-trimeth oprim 1 mg/mL eye drops INSTILL 1 DROP IN LEFT EYE FOUR TIMES DAILY FOR 10 DAYS active Not Available Not Available No t Available polyethylene glycol 3350 17 gram/dose oral powder DISSOLVE 17 GRAMS IN WATER AND TAKE BY MOUTH DAILY TO PREVENT POST OP CONSTIPATIO N. MAY INCREASE TO TWICE DAILY NEEDED active Not Available Not Available No t Available estradiol 0.01% (0.1 mg/gram) vaginal cream active Not Available Not Available Not Available levofloxacin 750 mg tablet TAKE 1 TABLET BY MOUTH EVERY 24 HOURS FOR 5 DAYS active Not Available Not Available N ot Available zolpidem 10 mg tablet TAKE 1 TABLET BY MOUTH EVERY NIGHT AT BEDTIME active Not Available Not Available No t Available methylpredni solone 4 mg tablets in a dose pack TAKE BY MOUTH DAILY DIRECTED ON PACKAGE LABELING FOR 6 DAYS active Not Available Not Available N ot Available ferrous sulfate 325 mg (65 mg iron) tablet,delay ed release TAKE 1 TABLET BY MOUTH TWICE DAILY active Not Available Not Available No t Available ondansetron 4 mg disintegrati ng tablet DISSOLVE 1 TABLET ON THE TONGUE EVERY 8 HOURS NEEDED FOR NAUSEA OR VOMITING active Not Available Not Available No t Available metocloprami de 10 mg tablet 10mg IV 2023 active Not Available Not Available Not Avai lable oxycodone 5 mg tablet TAKE 1 TABLET BY MOUTH EVERY 6 HOURS NEEDED FOR PAIN active Not Available Not Available No t Available neomycin 3.5 mg/g-polymyx in B 10,000 unit/g-dexam eth 0.1 % eye oint APPLY TO AFFECTED EYELID TWICE DAILY DIRECTED. active Not Available Not Available No t Available aripiprazole 15 mg tablet TAKE 1 TABLET BY MOUTH EVERY MORNING active Not Available Not Available No t Available aripiprazole 20 mg tablet TAKE 1 TABLET BY MOUTH EVERY MORNING active Not Available Not Available No t Available diclofenac 1 % topical gel APPLY 2 GRAMS TOPICALLY FOUR TIMES DAILY active Not Available Not Available No t Available Sodium Fluoride 5000 Plus 1.1 % dental cream USE DIRECTED TO BRUSH TWICE DAILY active Not Available Not Available No t Available Dayvigo 10 mg tablet TAKE 1 TABLET BY MOUTH AT BEDTIME active Not Available Not Available No t Available Quviviq 50 mg tablet TAKE 1 TABLET BY MOUTH EVERY NIGHT AT BEDTIME active Not Available Not Available No t Available Vitals Date Recorded Body temperature Respiratory rate Body height Heart rate Body weight Oxygen saturation Systolic And Diastolic Provider Name and Address Organization Details Last Updated DateTime 5 99.1 [degF] 16 /min 162.56 cm 77 /min 99046.3 28 g 98 % 126/79 mm[Hg] Not Available [employer] 5 16:03:11 Date Recorded Oxygen saturation Body temperature Respiratory rate Heart rate Body weight Heart rate Oxygen saturation Systolic And Diastolic Systolic And Diastolic Provider Name and Address Organization Details Last Updated DateTime 4 100 % 97.7 [degF] 18 /min 78 /min 66337.1 84 g 68 /min 100 % 118/78 mm[Hg] 116/70 mm[Hg] Not Available [employer] 4 12:00:16 Social History None recorded. Functional Status None recorded. Mental Status None recorded. Family History Nothing Reported. Medical History No medical history recorded. Gynecological HistoryNo gynecological history recorded. Obstetrics History GPAL:G 0 P 0 0 0 0 Past Encounters Encounter ID Performer Location Encounter Start Date Encounter Closed Date Diagnosis/Indication Diagnosis SNOMED-CT Code Diagnosis ICD10 Code Diagnosis IMO Codes Diagnosis Note [id number] HEIDY SOUZA MD [address] [address] 06/04/2023 11:20:26 06/04/2023 22:45:40 Headache 09508242 R51.9 [id number] Arslan Salcido MD [address] [address] 06/02/2024 16:02:46 06/03/2024 01:39:12 Butterfly rash 58103953 R21 Health Concerns Section Related Observation LastModified by Organization Detai ls LastModified Time None Recorded Concern Status LastModified by Organization Details LastModified Time None Recorded Advance Directives Directive None Recorded Payers Insurance Date Sequence Insurance Name Policy Number Policy Blair Covered Member ID Blair Member ID Guarantor Name 06/02/2024 [facility] - DOS ON OR AFTER 2022 - DUAL ELIGIBLE - LONG-TERM OPTIONS AND ONE CARE (MEDICARE REPLACEMENT/ADV ANTAGE - HMO) Yulissa Desouza [id number] Yulissa Desouza Notes Date Note Type Note Provider Name and Address Organization Details Recorded Time 06/04/2023 text/html ROS as noted in the HPI HPI: HX: Pre senile dementia, brain lesion 06/12, GERD,OA knees,ARNOLD with noted low HGb at last visit 05/21/23. Today reports dizziness and severe headache not relieved with Migraine medication or OTC. ...................... ...................... ...................... ...................... ...................... ...................... ......... [facility] Nurse Triage Notes (Alethea Orozco): Comments: HPI reviewed. No further information required to process visit. ...................... ...................... ...................... ...................... ...................... ...................... ......... Reed Fixer Note From Jose Francisco Hanks: Pt co headache and dizziness. Has history of migraines. Pt sts headache today is not as bad as other headaches she has had in the past. Pt sts light sensitivity. Pt took Tylenol yesterday with little relief. Pt denies NVD Sob cp. baseline vitals assessed. Pt had no numbness in extremities with negative facial droop. [facility] contacted and 10mg Reglan IV and 15mg toradol IV 1l NS. IV established in left AC with 18g. Successfully. Pt expressed she felt n ormal after treatment. Baseline vitals reassessed. Vitals stable. Pt education on signs indicating the ER. BS assessed 144. ...................... ...................... ...................... ...................... ...................... ...................... ......... Disposition: Fulfilled HEIDY SOUZA MD [address] [facility],[address], [place], [address], [employer] 06/04/2023 13:32:36 06/02/2024 text/html HPI: Patient with reported redness and swelling of upper eyelid on the left now starting on the right. Itching but no noted drainage. ...................... ...................... ...................... ...................... ...................... ...................... ......... [facility] Nurse Triage Notes (Alethea Orozco): Chief Complaints: Eye Complaint PMH: Gastroesophageal Reflux Disease (GERD), Osteoarthritis, Osteoporosis PMH Reviewed at 06/02/2024:34 Allergies Reviewed at 06/02/2024:34 Comments: HPI reviewed ...................... ...................... ...................... ...................... ...................... ...................... ......... Reed Fixer Note From Alexx Mendoza: [facility] visit for female pt. Pt presents at home complaining of swollen area in the periorbitral area. Pt noticed it starting a few days ago. Pt denies any new medications or changes to makeup or facial cosmetics. No appreciable swelling noted on exam. Image taken for [facility]. Area palpated with no warmth or swelling. V/S taken as listed. Pt afebrile. Consulted [facility] Dr. Salcido who advises pt remove makeup and leave off for next few days. Reviewed red flags for ED. Pt told to follow up with PCP next week. Pt education provided. ...................... ...................... ...................... ...................... ...................... ...................... ......... [facility] Consulted: Arslan Salcido ...................... ...................... ...................... ...................... ...................... ...................... ......... Disposition: Fulfilled Arslan Salcido MD [address] [facility],[address] [facility], [place], [address], [employer] 06/02/2024 21:58:27 OBGyn Episode No OBEpisode recorded.
--- OUTSIDE RECORDS SUMMARY | 2025-03-22 13:18 | XMS_ITS | Encounter Summary ---
Author Organization [employer] Address [address] [place] [address] Care Team Providers Care Dump Truck Driver Off Highway Name Role Phone Tran Rogers MD Primary Care Provider [phone] Reason for Referral * Consultation (Routine) - Closed Specialty Diagnoses / Procedures Referred By Nargis lu Referred To Contact Orthopaedic Surgery Diagnoses Other closed fracture of distal end of left radius, initial encounter Nondisplaced fracture of left radial styloid process, initial encounter for closed fracture Nesha Holloway MD [address] [place] [address] Phone: tel: fax: [facility] [address] [place] [address] [place] [address] Phone: tel: fax: Referral ID Status Reason Start Date Expiration Date V isits Requested Visits Authorized [id number] Closed Specialty Services Required 07/08/2024 07/08/2025 1 1 Encounter Details Date Type Department Care Team (Late st Contact Info) Description 07/08/2024 Orders Only [facility] [address] [place] [address] Nseha Holloway MD [address] [place] [address] Other closed fracture of distal end of left radius, initial encounter (Primary Dx); Nondisplaced fracture of left radial styloid process, initial encounter for closed fracture Social History Tobacco Use Types Packs/Day Years [...] Description 06/08/2025 10:00 AM EDT Clinical Support [facility] [address] [place] [address] Vesta Marcial, MANNIE [address] [place] [address] documented as of this encounter Procedures Procedure Name Priority Date/Time Associated Diagnosis Comments AMB REFERRAL TO ORTHOPAEDIC SURGERY Routine 07/12/2024 Other closed fracture of distal end of left radius, initial encounter Nondisplaced fracture of left radial styloid process, initial encounter for closed fracture documented in this encounter Results * Referral to Orthopaedic Surgery (07/12/2024) us Nesha Holloway MD OUTPATIENT REFERRAL ORDERAB LES Final Result documented in this encounter Visit Diagnoses Diagnosis Other closed fracture of distal end of left radius, initial encounter- Primary Nondisplaced fracture of left radial styloid process, initial encounter for closed fracture documented in this encounter Additional Health Concerns Assessment Noted Time PHQ-9 Depression Total Score: 11 024 10:16 AM EDT documented as of this encounter Care Teams Dump Truck Driver Off Highway Relationship Specialty Start Date End Date Tran Rogers MD [address] [place] [id number] PCP - General Family Medicine 11/10/17 documented as of this encounter
--- OUTSIDE RECORDS SUMMARY | 2025-03-22 13:18 | XMS_ITS | Clinical Summary ---
Author Organization [facility] Address [address] [place] [address] Care Team Providers Care Pot Maker Name Role Phone Nesha Holloway MD Primary Care Provider [phone] Allergies Active Allergy Reactions Criticality Noted Date [...] of both knees 09/28/2018 Seasonal allergies 09/28/2018 Surgical History Surgery Date Site/Laterality Comments CATARACT EXTRACTION Left PROCEDURE: HISTORICAL CATARACT REMOVAL Medical History Medical History Date Comments Hyperlipidemia DX:Hyperlipidemi a Anxiety 09/28/2018 DX:Anxiety; COMM ENT: 05/04/18 clonazepam for anxiety attacks Chronic back pain 09/28/2018 DX:Chronic liv k pain GERD (gastroesophageal reflux disease) 09/28/2018 DX:GERD (gastroesophageal reflux disease) Mood disorder ([facility] V24) 09/28/2018 DX:M ood disorder (HCC) Obesity, Class II, BMI 35-39.9 [...] Orientation Straight 06/16/2024 8: 16 PM EDT Last Filed Vital Signs Vital Sign Reading Time Taken Comments Blood Pressure 114/78 11/01/2024 9:17 PM EDT Pulse 93 11/01/2024 9:17 PM EDT Temperature 36.9 C (98.4 F) 11/01/2024 9:17 PM EDT Respiratory Rate 18 11/01/2024 9:17 PM EDT Oxygen Saturation 100% 11/01/2024 9:17 PM EDT Inhaled Oxygen Concentration - - Weight 61.2 kg (135 lb) 11/01/2024 9:17 PM EDT Height 162.6 cm (5' 4 ) 11/01/2024 9:17 PM EDT Body Mass Index 23.17 11/01/2024 9:17 PM EDT Plan of Treatment Health Maintenance Due Date Last Done Comments Colorectal Cancer Screening: Colonoscopy 1960 Pneumococcal Vaccine: 50+ Years (1 of 2 - PCV) 12/05/1979 Cervical Cancer Screening: P ap Smear 1981 Hepatitis B Vaccines (3 of 3 - 19+ 3-dose series) 04/16/2019 11/25/2018, 10/14/2018 Hepatitis C Screening 02/23/2022 Medicare Annual Wellness Visit 02/23/2022 Osteoporosis Screening (Bone Density Screening) 02/23/2022 Social Influencers of Health Screening 02/23/2022 Depression Screening 03/23/2024 COVID-19 Vaccine ( - 2024-2 6 season) 2024 05/03/2021, 06/28/2020, 06/01/2020 Influenza Vaccine (#1) 2024 , 04/08/2019 Cholesterol Screening (Lipid Panel) 07/27/2025 07/27/2020, 03/22/2018 Breast Cancer Screening 08/12/2025 08/13/2023 DTaP,Tdap,and Td Vaccines (3 - Td or Tdap) 12/22/2027 12/21/2017, 08/27/2012 HIV Screening Completed 07/27/2020 Zoster Vaccines Completed 04/22/2022, 02/12/2022 RSV Immunization Adult Patients Completed 07/06/2024 HIB Vaccines Aged Out No longer eligi [...] age to complete this topic Meningococcal B Vaccine Aged Out No l onger eligible based on patient's age to complete this topic RSV Immunization Patients Under 20 months Aged Out No longer eligible b ased on patient's age to complete this topic Varicella Vaccines Aged Out No longer eligible based on patient's age to complete this topic Procedures Procedure Name Priority Date/Time Associated Diagnosis Comments RODNEY SCREENING DIGITAL Routine 08/13/2023 3:32 PM EDT Encounter for screening mammogram for malignant neoplasm of breast LIPID PANEL Routine 03/22/2018 from Last 3 Months or Most Recently Relevant to Health Maintenance Results * RODNEY SCREENING DIGITAL (08/13/2023 3:32 PM EDT) Anatomical Region Laterality Modality Mammography 08/12/2023 7:17 AM EDT Narrative 08/13/2023 3:32 PM EDT [facility] Diagnostic Imaging Department [address] [place] [id number] Patient: ROCK MADSEN Adama /Age/Sex: 1960 - 62 - F Unit#: [id number] Location/Status: SPDIMAM/REG CLI Mnemonic/Ordering Site: [facility] Ordering Physician: SP ROGERS [facility] Screening Digital - 08/12/23 - 0733 Report Status:Signed EXAM: [facility] Screening Digital EXAM DATE AND TIME: 08/12/2023 7:34 AM HISTORY: Screening. Sister had breast carcinoma. COMPARISON: 10/11/21, 09/17/20, 4 1619 hours [place] TECHNIQUE: Bilateral digital breast tomosynthesis was performed in the CC and MLO projections. Computer aided detection with Pets are family too 3D 3.1 was employed. TISSUE DENSITY: b. There are scattered areas of fibroglandular density. FINDINGS: No suspicious masses, grouped microcalcifications, or areas of architectural distortion are seen. The skin and vascularity are unremarkable. IMPRESSION: Stable mammographic appearance of the breasts. No evidence of malignancy is seen. A negative mammogram in the presence of a clinically suspicious palpable abnormality does not preclude the possibility of malignancy or alter the indications for biopsy. BI-RADS: Category 1: Negative RECOMMENDATION(S): 1: Routine screening mammogram BILATERAL in 1 year. Dictating Physician: SANDY REYNOSO MD Electronically Signed by: SANDY REYNOSO MD Dic Date/Time: 08/13/231531 Sign date/Time: 05/23/24 1532 Procedure Note Sandy Reynoso MD - 11/09/2023 [facility] Diagnostic Imaging Department [address] [place] [address] [id number] Patient: ROCK MADSEN Adama LoveB./Age/Sex: 1960 - 62 - F Unit#: [id number] Location/Status: [facility] CLI Mnemonic/Ordering Site: [facility] Ordering Physician: SP ROGERS [facility] Screening Digital - 08/12/23 - 0733 Report Status:Signed EXAM: [facility] Screening Digital EXAM DATE AND TIME: 08/12/2023 7:34 AM HISTORY: Screening. Sister had breast carcinoma. COMPARISON: 10/11/21, 09/17/20, 4 1619 hours [place] TECHNIQUE: Bilateral digital breast tomosynthesis was performed in the CCand MLO projections. Computer aided detection with iCAD Digital Folio 3D 3.1was employed. TISSUE DENSITY: b. There [...] 08/13/23 1532 Sign date/Time: 08/13/23 1532 Sp Rogers MD IMG BI PROCEDURES Final Resul [...] Most Recently Relevant to Health Maintenance Insurance [facility] Member Subscriber Plan / Payer (Ef fective 2019-Present) Name:ROCK MADSEN Relation to Subscriber:Self Name:Rock Madsen Payer ID:[id number] Group ID:[id number] Type:Not on file Address: [place] [address] [place] [phone] Care Teams Pot Maker Relationship Specialty Start Date End Date Nesha Holloway MD [address] [place] [address] PCP - General 11/20/23
--- OUTSIDE RECORDS SUMMARY | 2025-03-22 13:18 | XMS_ITS | Clinical Summary ---
Author Organization [employer] Address [address] [place] [address] Care Team Providers Care Principal Process Engineer Name Role Phone Tran Rogers MD Primary Care Provider [phone] Allergies Active Allergy Reactions Criticality Noted Date Comments Penicillin G Low 04/09/2016 Other reaction(s): Hives / Skin Rash Medications * This document contains information received from the source organization and may not represent a complete record from that organization. B Complex Vitamins (RA B-Complex with B-12) tablet Take 1 tablet by mouth in the morning. 022 Active Nutritional Supplements (Ensure High Protein) liquid drink 1 can orally 3 times a day Active doxepin (SINEquan) 75 MG capsule Take 75 mg by mouth. 024 Active ARIPiprazole (Abilify) 20 MG tablet Take 20 mg by mouth in the morning. 024 Active cyanocobalamin (Vitamin B-12) 1000 MCG tablet TAKE 1 TABLET BY MOUTH EVERY DAY 90 tablet 1 024 Active lidocaine (Lidoderm) 5 % patchIndications: Acute left-sided low back pain with left-sided sciatica Apply 1 patch topically Once per day. Remove & discard patch within 12 hours or as directed by MD. 30 patch 024 Active ferrous sulfate 325 (65 Fe) MG EC tablet TAKE 1 TABLET BY MOUTH TWICE DAILY 60 tablet 3 024 Active alendronate (Fosamax) 70 MG tablet Take 1 tablet (70 mg) by mouth every 7 (seven) days. 12 tablet 2 024 Active lithium 300 MG capsule TAKE ONE CAPSULE BY MOUTH EVERY MORNING AND 2 CAPSULES EVERY NIGHT AT BEDTIME Active Quviviq 50 MG tablet Take 1 tablet by mouth at bedtime. Active OLANZapine (ZyPREXA) 7.5 MG tablet Take 1 tablet by mouth at bedtime. 025 Active Diclofenac Sodium 1 % gelIndications:Pr imary osteoarthritis of knees, bilateral Apply bid to affected areas 100 g 5 Active cholecalciferol (Vitamin D-3) 50 MCG (1999 UT) tabletIndications :Primary osteoarthritis of knees, bilateral Take 1 tab po daily 90 tablet 3 Active sucralfate (Carafate) 1 g tablet TAKE 1 TABLET(1 GRAM) BY MOUTH WITH THE EVENING MEAL WITH BREAKFAST AND WITH LUNCH 270 tablet Active naloxone (Narcan) 4 mg/0.1 mL nasal spray Administer 1 spray (4 mg) into affected nostril(s) if needed for opioid reversal. 2 each 1 Active Multiple Vitamin (Multivitamin) tablet TAKE 1 TABLET BY MOUTH EVERY MORNING 90 tablet 1 025 Active ALPRAZolam (Xanax) 2 MG tablet 025 Active mometasone (Nasonex) 50 MCG/ACT nasal spray Administer 1-2 sprays into each nostril Once per day. 17 g 2 025 2025 Active loratadine (Claritin) 10 MG tablet Take 1 tablet (10 mg) by mouth Once per day. 90 tablet 3 Active Estradiol 0.01 % cream Insert 1 Applicatorful into the vagina 1 (one) time per week. 42.5 g 11 025 Active traMADol (Ultram) 50 MG tabletIndications :Chronic back pain, unspecified back location, unspecified back pain laterality Take 1 tablet (50 mg) by mouth every 8 (eight) hours if needed for severe pain. 84 tablet 025 Active pantoprazole (ProtoNix) 20 MG EC tablet TAKE 1 TABLET BY MOUTH TWICE DAILY 180 tablet 025 Active lansoprazole (Prevacid) [address] capsule Take 1 capsule (30 mg) by mouth before breakfast. Do not crush or chew. 30 capsule 1 025 2025 Active esomeprazole (NexIUM) [address] capsule Take 1 capsule (20 mg) by mouth before breakfast. 30 capsule 2 025 2024 Discontinued(R eorder (will not trigger notification to Pharmacy)) traMADol (Ultram) 50 MG tabletIndications :Chronic back pain, unspecified back location, unspecified back pain laterality Take 1 tablet (50 mg) by mouth every 8 (eight) hours if needed for severe pain. 84 tablet 025 2024 Discontinued(R eorder (will not trigger notification to Pharmacy)) pantoprazole (ProtoNix) 20 MG EC tablet Take 20 mg by mouth 2 times daily. 2024 Discontinued(F ormulary change) Estrogens Conjugated (Premarin) 0.625 MG/GM cream Insert 1 Applicatorful into the vagina 1 (one) time per week. 30 g 11 025 2024 Discontinued(C ost of medication) esomeprazole (NexIUM) [address] capsuleIndication s:Gastroesophagea l reflux disease without esophagitis Take 1 capsule (20 mg) by mouth before breakfast. 30 capsule 2 025 2024 Discontinued(F ormulary change) Active Problems Problem Noted Date Diagnosed Date [...] without esophagi tis 02/19/2018 Benzodiazepine dependence, continuous (CMS/HCC) 12/21/2017 Back pain, chronic 12/21/2017 Mood disorder 12/21/2017 Primary osteoarthritis of knees, bilateral 12/21 Seasonal allergies 12/21/2017 Tubular adenoma of colon 08/11/2013 Overview (04/15/2022): tubular adenoma of colonrepeat colonoscopy in 5 years Encounters * This document contains information received from the source organization and may not represent a complete record from that organization. Date Type Department Care Team Description 03/14/2025 Refill [facility] [address] [place] [address] Alethea Roche FNP 03/14/2025 Orders Only [facility] [address] [place] [address] Alethea Roche FNP 03/14/2025 Refill [facility] [address] [place] [address] Tran Rogers MD 03/07/2025 10:00 AM EST Clinical Support [facility] [address] [place] [address] Vesta Marcial, MANNIE Long-term current use of opiate analgesic (Primary Dx) 03/07/2025 Travel 03/07/2025 Telephone [facility] [address] [place] [address] Tran Rogers MD 02/27/2025 Refill [facility] [address] [place] [address] Vesta Marcial, reflexologist back pain, unspecified back location, unspecified back pain laterality 02/27/2025 Telephone [facility] [address] [place] [address] Tran Rogers MD Med Refill 02/23/2025 Orders Only [facility] [address] [place] [address] Tran Rogers MD 02/23/2025 Telephone [facility] [address] [place] [address] Tran Rogers MD Med Refill 01/24/2025 Orders Only [facility] [address] [place] [address] Tran Rogers MD 01/24/2025 Telephone [facility] [address] [place] [address] Tran Rogers MD Medication Question 01/17/2025 9:45 AM EDT Office Visit [facility] [address] [place] [address] Tran Rogers MD Breast cancer screening by mammogram (Primary Dx); Seasonal allergies; Age-related osteoporosis without current pathological fracture; Mood disorder ([facility]) 01/17/2025 Travel 01/14/2025 Telephone [facility] [address] [place] [phone] Tran Rogers MD Chart Prep 01/09/2025 Refill [facility] [address] [place] [address] Tran Rogers MD Chronic back pain, unspecified back location, unspecified back pain laterality 01/06/2025 Patient Outreach [facility] [address] [place] [address] Tran Rogers MD Pre-visit Planning (SDOH screening negative and Tobacco screening positive) from Last 3 Months Immunizations Immunization Administration Dates Next Due Hep B, adult 11/25/2018,10/14/2018 Influenza Injectable Quadriv alant Preservative Free IIV4 MDCK 02/12/2022 Influenza injectable quadriv alent IIV4 with preservative 04/08/2019 Moderna Covid-19 Vaccine 12+ 05/03/2021,06/29/19 21 RSV Adjuvant 07/06/2024 Tdap 12/21/2017,08/27/2012 Zoster, Recombinant 04/22/2022,02/12/2022 Social History [...] your housing situation today? I have karen camelia 01/06/[address] you li [...] Sign Reading Time Taken Comments Blood Pressure 120/60 01/17/2025 9:35 AM EDT Pulse 62 01/17/2025 9:35 AM EDT Temperature 36.1 C (97 F) 01/17/2025 9:35 AM EDT Respiratory Rate 16 01/17/2025 9:35 AM EDT Oxygen Saturation 98% 06/21/2024 9:57 AM EDT Inhaled Oxygen Concentration - - Weight 61.7 kg (136 lb) 01/17/2025 9:35 AM EDT Height 162.6 cm (5' 4 ) 07/06/2024 2:26 PM EDT Body Mass Index 23.34 07/06/2024 2:26 PM EDT Plan of Treatment Upcoming Encounters Date Type Department Care Team (Late st Contact Info) Description 06/08/2025 10:00 AM EDT Clinical Support [facility] [address] [place] [address] Vesta Marcial, RN [address] [place] [address] Health Maintenance Due Date Last Done Comments CT Colonography 1960 FIT DNA/Cologuard 1960 FIT 1960 FOBT 1960 Sigmoidoscopy 1960 Disability Screening 1960 Hepatitis B Vaccines (3 of 3 - 19+ 3-dose series) 04/16/2019 11/25/2018, 10/14/2018 COVID-19 Vaccine ( season) 2024 05/03/2021, 06/28/2020, 06/01/2020 Influenza Vaccine (#1) 2024 02/12/2022, 2019 Pap Smear 04/16/2025 04/16/2022 Mammogram 07/12/2025 07/13/2023, 09/21, 10/11/2021, Additional history exists Depression Monitoring 07/20/2025 01/19/2025, 025 Lipid Panel 07/27/2025 07/27/2020 SDOH Screening 01/06/2026 01/06/2025 Tobacco Screening 01/17/2026 01/17/2025 Alcohol/Substance Use Screening 01/19/2026 01/19/2025 Cervical Cancer Screening 04/16/2027 HPV/Cotest 04/16/2027 04/16/2022, 03/24, 01/20/2017 DTaP/Tdap/Td Vaccines (3 - Td or Tdap) 12/22/2027 12/21/2017, 08/27/2012 Colonoscopy 12/13/2029 12/14/2019 Colorectal Cancer Screening 12/13/2029 HIV Screening Completed 07/27/2020 Hepatitis C Screening Completed 07/27/2020 Zoster Vaccines Completed 04/22/2022, 02/12/2022 RSV Patients and Patients Aged 60 years or older Completed 07/06/2024 Pneumococcal Vaccine: 50+ Years Completed 12/12/2024 HIB Vaccines Aged Out No longer eligi [...] Procedure Name Priority Date/Time Associated Diagnosis Comments POCT JORGE-14 URINE DRUG SCREEN Routine 03/07/2025 9:58 AM EST Long-term current use of opiate analgesic BI MAMMOGRAM SCREENING TOMOSYNTHESIS BILATERAL Routine 07/13/2023 [...] Recently Relevant to Health Maintenance Results * POCT JORGE-14 Urine Drug Screen (03/07/2025 9:58 AM EST) THC Negative Negative Cocaine Screen, Urine Negative Negative Opiate Screen, Urine Negative Negative Methamphetamine Screen Urine Negative Negative Amphetamine Screen, Urine Negative Negative Benzodiazepines Screen, Urine Negative Negative Barbiturate Screen, Urine Negative Negative Methadone Screen, Urine Negative Negative Buprenophine Screen, Urine Negative Negative TCA, Urine Negative Negative MDMA Urine Negative Negative ng/mL Oxycodone Screen, Urine Negative Negative Phencyclidine (PCP), Urine Negative Negative Propoxyphene, Urine Negative Negative Fentanyl, Urine Negative Negative Urine Urine specimen obtained by clean catch procedure / Unknown 03/07/2025 9:58 AM EST Narrative Vesta Marcial RN - 03/07/2025 9:58 AM EST . Internal Pass Control Lot# [id number] Exp: 12-27-25 Tran Rogers MD POINT OF CARE TEST ENTER/EDIT ORDERABLES Final Result * BI Mammogram Screening Tomosynthesis Bilateral (07/13/2023) Anatomical Region Laterality Modality Breast Bilateral Mammography Tran Rogers MD IMG BI PROCEDURES Final Resul t * (ABNORMAL) ThinPrep Imaging Pap and HPV DNA reflex HPV 16,18 (04/16/2022 12:00 AM EST) Clinical Information: None given [facility] LMP: NONE GIVEN [facility] Prev. PAP: NONE GIVEN [facility] Prev. BX: NONE GIVEN [facility] SOURCE: None given [facility] Statement Of Adequacy: [facility] Comment: Satisfactory for evaluation. Endocervical/transformation zone component present. Interpretation/ Result: Negative for intraepithelial lesion or malignancy. [facility] Infection Shift in vaginal emilee suggestive of bacterial vaginosis. [facility] Comment: This Pap test has been evaluated with computer assisted technology. [facility] Cytotechnologis t: [employer] [place] [employer] Comment: WXW, CT(ASCP) CT Screening Location: [address] [address] Review Cytotechnologis t: [employer] [place] [employer] Comment: GSG, CT(ASCP) CT screening location: [address] [address] (Always Message) [employer] [place] [employer] Comment: EXPLANATORY NOTE: The Pap is a [...] DNA, High Risk, Cervical Detected(A) NOT DETECTED [facility]Lara [facility] Comment: Detected One or more High Risk HPV types (16,18,31,33, 35,39,45,51,52,56,58,59,66,68) was detected. Methodology: Real Time PCR 04/16/2022 04/17/2022 9:2 7 AM EST Narrative [facility] - 05/03/2022 10:24 AM EST FASTING: UNKNOWN us Tran Rogers MD LAB CYTOLOGY ORDERABLES Final Result [address] [place] [address] [employer] [place] [employer] [address] [place] [address], (Nl2) [place] [address] Ruslan [employer]Nuzhat [place] [address] [facility] [place] [address] * HPV Genotypes 16 and 18, Cervical (04/16/2022 12:00 AM EST) HPV 16 Not Detected Not Detected [facility]/ Nuzhat Fletcher antiwendie [facility]ACK[facility] HPV 18 Not Detected Not Detected [facility]/ [facility] Comment:Methodology: Real Ti me PCR 04/16/2022 04/17/2022 9:2 7 AM EST Narrative [facility] - 05/03/2022 10:24 AM EST FASTING: UNKNOWN Tran Rogers MD LAB BLOOD ORDERABLES Final Re sult [facility] [address], [place] [address] [facility]Nuzhat [facility] [address] [facility] [place] [address] * HEPATITIS C AB W/REFL TO HCV RNA, QN, PCR (07/27/2020 9:20 AM EDT) HEPATITIS C ANTIBODY NON-REACT JAJA NON-REACT JAJA [facility] INDEX 0.01 <1.00 [facility] Comment: HCV antibody was non-reactive. There is no laboratory evidence of HCV infection. In most cases, no further action is required. However, if recent HCV exposure is suspected, a test for HCV RNA (test code 98913) is suggested. For additional information please refer to http://education.[employer]/faq/DAF01a4 (This link is being provided for informational/ educational purposes only.) 07/27/2020 9:20 AM EDT Tran Rogers MD HISTORICAL/NON ORDERABLE LABS Final Result [facility] [address] * HIV 1/2 ANTIGEN/ANTIBODY,FOURTH GENERATION W/RFL (07/27/2020 9:20 AM EDT) HIV-1/2 ANTIGEN AND ANTIBODIES, 4TH GENERATION W/ REFLEX NON-REACT JAJA NON-REACT JAJA [facility] Comment: HIV-1 antigen and HIV-1/HIV-2 antibodies were not detected. There is no laboratory evidence of HIV infection. PLEASE NOTE: This information has been disclosed to you from records whose confidentiality may be protected by state law. If your state requires such protection, then the state law prohibits you from making any further disclosure of the information without the specific written consent of the person to whom it pertains, or as otherwise permitted by law. A general authorization for the release of medical or other information is NOT sufficient for this purpose. For additional information please refer to http://[employer]/faq/DNJ387 (This link is being provided for informational/ educational purposes only.) The performance of this assay has not been clinically validated in patients less than 2 years old. 07/27/2020 9:20 AM EDT us Tran Rogers MD LAB BLOOD ORDERABLES Final Re sult [facility] [address] * LIPID PANEL, STANDARD (07/27/2020 9:20 AM EDT) Chol/HDLC Ratio 2.9 <5.0 (calc) [facility] Cholesterol, Total 163 <200 mg/dL [facility] HDL Cholesterol 57 > OR = 50 mg/dL [facility] LDL Cholesterol 89 mg/dL (calc) [facility] Comment: Reference range: <100 Desirable range <100 mg/dL for primary prevention; <70 mg/dL for patients with CHD or diabetic patients with > or = 2 CHD risk factors. LDL-C is now calculated using the Ramiro-Gilbert calculation, which is a validated novel method providing better accuracy than the Friedewald equation in the estimation of LDL-C. Ramiro JACOB et al. NGOC. 2013;310(19): 3380-2862 (http://education.[employer]/faq/UDX850) Non-HDL Cholesterol 106 <130 mg/dL (calc) [facility] Comment: For patients with diabetes plus 1 major ASCVD risk factor, treating to a non-HDL-C goal of <100 mg/dL (LDL-C of <70 mg/dL) is considered a therapeutic option. Triglycerides 76 <150 mg/dL [facility] 07/27/2020 9:20 AM EDT us Tran Rogers MD LAB BLOOD ORDERABLES Final Re sult [facility] [address] * Colonoscopy (12/14/2019) Colonoscopy Performed us Historical Provider HEALTH MAINTENANCE Final Result from Last 3 Months or Most Recently Relevant to Health Maintenance Insurance [employer] [address] [address] [facility] < 65 [place] [phone] * Guarantor: Yulissa Desouza Account Type Relation to Patient Date of Phone Billing Address Personal/Family Self [facility] [address] * Guarantor: Yulissa Desouza Account Type Relation to Patient Date of Phone Billing Address Personal/Family Self [facility] [address] Care Teams Principal Process Engineer Relationship Specialty Start Date End Date Tran Rogers MD [address] [place] [address] PCP - General Family Medicine 11/10/17
--- OUTSIDE RECORDS SUMMARY | 2025-03-22 13:18 | XMS_ITS | Encounter Summary ---
Author Organization [employer] Address [address] [facility] [address] [place] [address] Care Team Providers Care Potato Chip Frier Name Role Phone Tran Rogers MD Primary Care Provider [phone] Encounter Details Date Type Department Care Team ([facility] st Contact Info) Description 09/30/2022 Orders Only [facility] MED & PEDS [address] [place], [place] [id number] Tran Rogers MD [address] [place] [address] Endometrial mass (Primary Dx) Social History Tobacco [...] 10:00 AM EDT Clinical Support [facility] MED & PEDS [address] [place] [address] Vesta Marcial, MANNIE [address] [place] [address] documented as of this encounter Visit Diagnoses Diagnosis Endometrial mass- Primary documented in this encounter Care Teams Potato Chip Frier Relationship Specialty Start Date End Date Tran Rogers MD [address] [place] [address] PCP - General Family Medicine 11/10/17 documented as of this encounter
--- OUTSIDE RECORDS SUMMARY | 2025-03-22 13:18 | XMS_ITS | Encounter Summary ---
Author Organization [employer] Address [address] [address] Care Team Providers Care Patents Examiner Name Role Phone Tran Rogers MD Primary Care Provider [phone] Reason for Visit * Reason Onset Date Comments Med Refill 02/02/2023 Encounter Details Date Type Department Care Team (Late st Contact Info) Description 02/02/2023 Telephone [facility] MEDICINE [address] [place] [address] Tran Rogers MD [address] [place] [address] Med Refill Social History Tobacco Use Types [...] Upcoming Encounters Date Type Department Care Team ([facility] st Contact Info) Description 06/08/2025 10:00 AM EDT Clinical Support [facility] MED & PEDS [address] [place] [address] Vesta Marcial, MANNIE [address] [place] [address] documented as of this encounter Visit Diagnoses Not on filedocumented in this encounter Care Teams Patents Examiner Relationship Specialty Start Date End Date Tran Rogers MD [address] [place] [address] PCP - General Family Medicine 11/10/17 documented as of this encounter
--- OUTSIDE RECORDS SUMMARY | 2025-03-22 13:18 | XMS_ITS | Encounter Summary ---
Author Organization [employer] Address [address] [facility] [address] [place] [address] Care Team Providers Care Sap Specialist Name Role Phone Tran Rogers MD Primary Care Provider [phone] Reason for Visit * Reason Onset Date Comments Durable Medical Equipment 02/02/2023 Encounter Details Date Type Department Care Team (Late st Contact Info) Description 02/02/2023 Telephone [facility] MEDICINE [address] [place] [address] Tran Rogers MD [address] [place] [address] Durable Medical Equipment Social History Tobacco Use [...] 03/11/2023 11:15 AM EST Message below notes keno writer returned call inform pt to call L&C for update , * Telephone Encounter - Odilon Chow - 03/11/2023 10:05 AM EST Tc from pt requesting status on ensures. Please contact pt @ [phone] * Telephone Encounter - Rosemary Avila LPN - 02/02/2023 1:15 PM EST Message below noted , however pt has an active RX for boost with l&C boost with high protein itis on back order keno writer did inform pt , showed understanding stated will continue to wait . Just anFYI * Telephone Encounter - Daysi Aleman - 02/02/2023 10:36 AM EST Tc from pt requesting script for Ensure drinks. documented in this encounter Plan of Treatment Upcoming Encounters Date Type Department Care Team (Late st Contact Info) Description 06/08/2025 10:00 AM EDT Clinical Support [facility] MED & PEDS [address] [place] [address] Vesta Marcial RN [address] [place] [address] documented as of this encounter Visit Diagnoses Not on filedocumented in this encounter Care Teams Sap Specialist Relationship Specialty Start Date End Date Tran Rogers MD [address] [place] [address] PCP - General Family Medicine 11/10/17 documented as of this encounter
== END 2025-03-22 11:33 | disposition home or self-care (01) ==
LOC: HO.MAMMO 11:32
PROVIDERS: PCP Pediatrics; Visit Provider Pediatrics
DX: Z12.31 Encounter for screening mammogram for malignant neoplasm of breast (principal)
CPT/HCPCS: 77063; 77067

== ENCOUNTER → 2025-03-22 12:30 | Outpatient (BNV) | payer OTHER, SELFPAY | PROVIDERS: PCP Pediatrics; Visit Provider Internal Medicine | DX: Z12.31 Encounter for screening mammogram for malignant neoplasm of breast (principal) | CPT/HCPCS: 77063; 77067 ==